=== PATIENT | male | born 1960 | race Caucasian/White ===

== ENCOUNTER 2017-11-09 10:21 | Inpatient (IN) | payer OTHER ==
[~2017-11-09] VITALS: Ht 177.8 cm; Wt 83.4 kg
[2017-11-09 10:59] VITALS: BP 187/95; PULSE 119; RESP 14; TEMP 98.6; O2SAT 96
[2017-11-09 11:12] VITALS: BP 157/85; PULSE 120; RESP 16; O2SAT 97
[2017-11-09] MEDS ORDERED: ONDANSETRON HCL 4 MG/2 ML VIAL IV PUSH ONE (11:15)
[2017-11-09] MEDS ORDERED: SODIUM CHLORIDE 0.9% FLUSH 10 ML FLUSH IVF PRN (11:15)
[2017-11-09] MEDS: RESP: ALBUTEROL 2.5 MG/IPRATROPIUM 0.5 MG NEB (SCH) INH ×5 (11:15→12:49)
[2017-11-09] MEDS ORDERED: NITROGLYCERIN 0.4 MG SL 25 TABS/BTL SL ONE (11:15)
[2017-11-09] MEDS ORDERED: SODIUM CHLORID 0.9% 500 ML INJ 500 ML IV ONE (11:15)
--- NOTE | 2017-11-09 11:16 | PD ---
HPI Chief Complaint: Chest Pain Time Seen by Provider: 11:01 Travel History International Travel<30 days: No Contact w/Intl Traveler<30days: No Traveled to known affect area: No History of Present Illness HPI 56y male with a history of HLD, HTN, hypokalemia, COPD presents to the ED c/o SOB, chest pain, leg cramps associated with nausea that started yesterday. Patient states that he has right midsternal chest tightness and pain that radiated down to the left arm and left shoulder that has been constant and moderate in severity. Says that he has developed a headache today and his symptoms have only worsened which is the reason he is here today. Says he took all of his medications today which include potassium, blood pressure, cholesterol pill. Says his right ankle swelled for 1 day a few days ago but resolved promptly. Denies history of blood clots. Patient says that he takes aspirin daily, did take aspirin today. Says he normally takes inhalers for COPD however, he has been out for approximately 2 days. Says some the symptoms are similar to previous episodes when he has run out of his inhalers however, states that this is more intense and is concerned this is hard. Patient denies any chronic cardiac issues. Patient does not currently have a primary care physician and goes to a free clinic and been [facility] Social History Tobacco Use: No Allergies-Medications (Allergen,Severity, Reaction): Coded Allergies: No Known Allergies (Unverified , 11/09/17) Review of Systems Except as stated in HPI: all other systems reviewed are Neg Physical Exam Narrative GENERAL: WD, WN, anxious SKIN: Focused skin assessment warm/dry. HEAD: Atraumatic. Normocephalic. EYES: Pupils equal and round. No scleral icterus. No injection or drainage. ENT: No nasal bleeding or discharge. Mucous membranes pink and moist. NECK: Trachea midline. No JVD. CARDIOVASCULAR: Regular rate and rhythm. No murmur appreciated. RESPIRATORY: No accessory muscle use. Clear to auscultation. Breath sounds equal bilaterally. GASTROINTESTINAL: Abdomen soft, non-tender, nondistended. Hepatic and splenic margins not palpable. MUSCULOSKELETAL: No obvious deformities. No clubbing. No cyanosis. No edema. NEUROLOGICAL: Awake and alert. No obvious cranial nerve deficits. Motor grossly within normal limits. Normal speech. PSYCHIATRIC: Appropriate mood and affect; insight and judgment normal. Data Data Last Documented VS Vital Signs Date Time Temp Pulse Resp B/P (MAP) Pulse Ox O2 Delivery O2 Flow Rate FiO2 11/09/17 11:28 97 Nasal Cannula 2.50 11/09/17 11:12 120 16 157/85 (109) 11/09/17 10:59 98.6 Orders Orders B-Type Natriuretic Peptide (11/09/17 11:08) Ckmb (Isoenzyme) Profile (11/09/17 11:08) Complete Blood Count With Diff (11/09/17 11:08) Comprehensive Metabolic Panel (11/09/17 11:08) Magnesium (Mg) (11/09/17 11:08) Prothrombin Time / Inr (Pt) (11/09/17 11:08) Act Partial Throm Time (Ptt) (11/09/17 11:08) Troponin I (11/09/17 11:08) Chest, Single Ap (11/09/17 11:08) Nitroglycerin Sl (Nitrostat Sl) (11/09/17 11:15) Iv Access Insert/Monitor (11/09/17 11:08) Ecg Monitoring (11/09/17 11:08) Oximetry (11/09/17 11:08) Oxygen Administration (11/09/17 11:08) Sodium Chloride 0.9% Flush (Ns Flush) (11/09/17 11:15) Albuterol-Ipratropium Neb (Duoneb Neb) (11/09/17 11:15) Influenzae A/B Antigen (11/09/17 11:08) Ondansetron Inj (Zofran Inj) (11/09/17 11:15) Sodium Chlorid 0.9% 500 Ml Inj (Ns 500 M (11/09/17 11:15) Promethazine Inj (Phenergan Inj) (11/09/17 12:00) Lactated Ringer's 1000 Ml Inj (Lr 1000 M (11/09/17 12:00) Promethazine Inj (Phenergan Inj) (11/09/17 12:15) CKMB (11/09/17 11:30) CKMB% (11/09/17 11:30) Urinalysis - C+S If Indicated (11/09/17 12:43) Acetaminophen (Tylenol) (11/09/17 14:15) Nitroglycerin 2% Oint (Nitroglycerin 2% (11/09/17 14:15) Sodium Chlor 0.9% 1000 Ml Inj (Ns 1000 M (11/09/17 14:15) Electrocardiogram (11/09/17 10:45) Ct Pulmonary Angiogram (11/09/17 ) Electrocardiogram (11/09/17 ) Iohexol 350 Inj (Omnipaque 350 Inj) (11/09/17 16:00) Ct Brain W/O Iv Contrast(Rout) (11/09/17 ) Magnesium Sulfate 1 Gm Premix (Magnesium (11/09/17 17:00) Admit Order (Ed Use Only) (11/09/17 17:00) Labs Laboratory Tests Test 11/09/17 11:30 11/09/17 12:45 White Blood Count 7.7 TH/MM3 Red Blood Count 4.28 MIL/MM3 Hemoglobin 13.7 GM/DL Hematocrit 39.7 % Mean Corpuscular Volume 92.8 FL Mean Corpuscular Hemoglobin 32.0 PG Mean Corpuscular Hemoglobin Concent 34.5 % Red Cell Distribution Width 13.6 % Platelet Count 161 TH/MM3 Mean Platelet Volume 7.7 FL Neutrophils (%) (Auto) 56.7 % Lymphocytes (%) (Auto) 35.3 % Monocytes (%) (Auto) 6.6 % Eosinophils (%) (Auto) 0.5 % Basophils (%) (Auto) 0.9 % Neutrophils # (Auto) 4.3 TH/MM3 Lymphocytes # (Auto) 2.7 TH/MM3 Monocytes # (Auto) 0.5 TH/MM3 Eosinophils # (Auto) 0.0 TH/MM3 Basophils # (Auto) 0.1 TH/MM3 CBC Comment DIFF FINAL Differential Comment Prothrombin Time 10.1 SEC Prothromb Time International Ratio 1.0 RATIO Activated Partial Thromboplast Time 25.4 SEC Blood Urea Nitrogen 8 MG/DL Creatinine 0.73 MG/DL Random Glucose 89 MG/DL Total Protein 7.2 GM/DL Albumin 3.9 GM/DL Calcium Level 7.8 MG/DL Magnesium Level 1.4 MG/DL Alkaline Phosphatase 88 U/L Aspartate Amino Transf (AST/SGOT) 56 U/L Alanine Aminotransferase (ALT/SGPT) 47 U/L Total Bilirubin 0.4 MG/DL Sodium Level 136 MEQ/L Potassium Level 3.7 MEQ/L Chloride Level 101 MEQ/L Carbon Dioxide Level 21.7 MEQ/L Anion Gap 13 MEQ/L Estimat Glomerular Filtration Rate 111 ML/MIN Total Creatine Kinase 1442 U/L Creatine Kinase MB 13.8 NG/ML Creatine Kinase MB % 1.0 % Troponin I LESS THAN 0.02 NG/ML B-Type Natriuretic Peptide 13 PG/ML Urine Color YELLOW Urine Turbidity CLEAR Urine pH 5.5 Urine Specific [place] 1.011 Urine Protein NEG mg/dL Urine Glucose (UA) 150 mg/dL Urine Ketones 10 mg/dL Urine Occult Blood NEG Urine Nitrite NEG Urine Bilirubin NEG Urine Urobilinogen LESS THAN 2.0 MG/DL Urine Leukocyte Esterase NEG Urine Squamous Epithelial Cells <1 /hpf Urine Mucus FEW /lpf Microscopic Urinalysis Comment CULT NOT INDICATED MDM Medical Decision Making Medical Screen Exam Complete: Yes Emergency Medical Condition: Yes Differential Diagnosis NSTEMI, angina, unstable angina, COPD exacerbation, influenza, upper respiratory infection Narrative Course 56-year-old male with a history of COPD, hypertension, hyperlipidemia presents to the emergency department with concerns of chest tightness, leg cramps, left arm numbness that started yesterday. States today he developed a headache and his cramps have not resolved so he decided to come to the emergency department today. Says he has associated shortness of breath and nausea. Says his right ankle started swelling proximal 1 day last week resolved spontaneously. The exam findings demonstrate a 56-year-old male anxious, restless in bed. 2 L O2 administered for potential ACS. Patient says he took aspirin today. Denies any cardiac history. Says he drinks maybe 1 drink per day but denies daily alcohol consumption. Vital signs stable, mildly hypertensive. EKG shows sinus tachycardia without STEMI changes. Nitro 0.4 mg administered SL with significant improvement in symptoms. Zofran and Phenergan administered for nausea. Normal saline 500 cc initiated. Because of patient's apparent muscle spasms, initiated lactated Ringer's IV fluid. Duonebs x2 administered with good relief of SOB. Upon reevaluation and discussion of findings, patient continues to have chest pain /. Ordered 0.5" nitro paste. HR 128, BP systolic 158. In addition, he has a persistent headache and does not feel nausea. PO Tylenol administered. Patient apparently refused the Nitropaste as the initial nitro dose gave him a headache. Pt will be admitted for rhabdomyolysis, chest pain r/o ACS. Patient will be admitted to Dr. De La Rosa Diagnosis Primary Impression: Rhabdomyolysis Qualified Codes: M62.82 - Rhabdomyolysis Additional Impression: Noncompliance Admitting Information Admitting Physician Requests: Admit Condition: Stable Nataliya Ervin Nov 09, 2017 11:16
[2017-11-09 11:28] VITALS: O2SAT 97
--- NOTE | 2017-11-09 11:40 | PD ---
Physical Exam Date Seen by Provider: Nov 09, 2017 Narrative This patient presents with chest pain. He states that his problems all started yesterday with some cramps. Today, he developed the chest pain. He has a history of tobacco abuse, hypertension and hyperlipidemia. Data Data Last Documented VS Vital Signs Date Time Temp Pulse Resp B/P (MAP) Pulse Ox O2 Delivery O2 Flow Rate FiO2 11/09/17 11:28 97 Nasal Cannula 2.50 11/09/17 11:12 120 16 157/85 (109) 11/09/17 10:59 98.6 Orders Orders B-Type Natriuretic Peptide (11/09/17 11:08) Ckmb (Isoenzyme) Profile (11/09/17 11:08) Complete Blood Count With Diff (11/09/17 11:08) Comprehensive Metabolic Panel (11/09/17 11:08) Magnesium (Mg) (11/09/17 11:08) Prothrombin Time / Inr (Pt) (11/09/17 11:08) Act Partial Throm Time (Ptt) (11/09/17 11:08) Troponin I (11/09/17 11:08) Chest, Single Ap (11/09/17 11:08) Nitroglycerin Sl (Nitrostat Sl) (11/09/17 11:15) Iv Access Insert/Monitor (11/09/17 11:08) Ecg Monitoring (11/09/17 11:08) Oximetry (11/09/17 11:08) Oxygen Administration (11/09/17 11:08) Sodium Chloride 0.9% Flush (Ns Flush) (11/09/17 11:15) Albuterol-Ipratropium Neb (Duoneb Neb) (11/09/17 11:15) Influenzae A/B Antigen (11/09/17 11:08) Ondansetron Inj (Zofran Inj) (11/09/17 11:15) Sodium Chlorid 0.9% 500 Ml Inj (Ns 500 M (11/09/17 11:15) MDM Supervised Visit with MEAGAN: Yes Interpretation(s) EKG shows sinus tachycardia at 122. No ST segment elevation or depression. Differential Diagnosis Differential diagnosis of chest pain includes but is not limited to musculoskeletal pain, pulmonary embolism, acute coronary syndrome, pneumonia, pleurisy Narrative Course I, Dr. Zimmerman, have reviewed the advance practice practitioner's documentation and am in agreement, met with the patient face to face, made the diagnosis, and the medical decision making was done by me. *My assessment and Findings: Patient is awake and alert and does not appear to be in any acute distress. However, his symptomatology is worrisome. Please see Nataliya Ervin PA-C's note for further details, lab and radiology results, final diagnosis and disposition. Condition: Stable Mary Zimmerman MD Nov 09, 2017 11:40
--- NOTE | 2017-11-09 11:47 | RADRPT ---
EXAM DATE/TIME: 11/09/2017 11:25 [facility] COMPARISON: No previous studies available for comparison. INDICATIONS : Chest pains x 2 days with nausea and vomiting, diarrhea MEDICAL HISTORY : None. SURGICAL HISTORY : None. ENCOUNTER: Initial ACUITY: 2 days PAIN SCORE: 9/10 LOCATION: Bilateral chest FINDINGS: A single view of the chest demonstrates the lungs to be symmetrically aerated without evidence of mas s, infiltrate or effusion. The cardiomediastinal contours are unremarkable. Osseous structures are intact. CONCLUSION: No acute disease. There is no evidence of pneumonia. Vikram Ventura MD on November 09, 2017 at 11:44 Board Certified Radiologist. This report was verified electronically.
[2017-11-09 11:55] LABS: AUTOMATED NEUTROPHIL # 4.3 TH/MM3 (1.8-7.7); BASOPHIL # 0.1 TH/MM3 (0-0.2); BASOPHIL % 0.9 % (0.0-2.0); EOSINOPHIL % 0.5 % (0.0-4.0); HEMATOCRIT 39.7 % (39.0-51.0); HEMOGLOBIN 13.7 GM/DL (13.0-17.0); LYMPH % 35.3 % (9.0-44.0); LYMPHOCYTE # 2.7 TH/MM3 (1.0-4.8); MEAN CELL VOLUME 92.8 FL (80.0-100.0); MEAN CORPUSCULAR HGB CONC 34.5 % (32.0-36.0); MEAN PLATELET VOLUME 7.7 FL (7.0-11.0); MONO % 6.6 % (0.0-8.0); MONOCYTE # 0.5 TH/MM3 (0-0.9); NEUT % 56.7 % (16.0-70.0); PLATELET COUNT 161 TH/MM3 (150-450); RED BLOOD COUNT 4.28 MIL/MM3 (4.50-5.90); RED CELL DISTRIBUTION WIDTH 13.6 % (11.6-17.2); WHITE BLOOD COUNT 7.7 TH/MM3 (4.0-11.0)
[2017-11-09] MEDS ORDERED: LACTATED RINGER'S 1000 ML INJ 1,000 ML IV ONE (12:00)
[2017-11-09] MEDS ORDERED: PROMETHAZINE INJ 25 MG/ML VIAL IM ONE (12:00)
[2017-11-09 12:10] LABS: PROTHROMBIN TIME - PATIENT 10.1 SEC (9.8-11.6)
[2017-11-09] MEDS ORDERED: PROMETHAZINE INJ 25 MG/ML VIAL OTHER ONE (12:15)
[2017-11-09 12:16] LABS: ALBUMIN 3.9 GM/DL (3.4-5.0); AST (GOT) 56 U/L (15-37); BICARBONATE 21.7 MEQ/L (21.0-32.0); BLOOD UREA NITROGEN 8 MG/DL (7-18); CALCIUM 7.8 MG/DL (8.5-10.1); CHLORIDE 101 MEQ/L (98-107); CREATININE 0.73 MG/DL (0.60-1.30); GLOMERULAR FILTRATION RATE 111 ML/MIN (>89); GLUCOSE,RANDOM 89 MG/DL (74-106); MAGNESIUM 1.4 MG/DL (1.5-2.5); SODIUM (NA) 136 MEQ/L (136-145)
[2017-11-09 12:30] LABS: ALKALINE PHOSPHATASE 88 U/L (45-117); ALT (GPT) 47 U/L (12-78); TOTAL BILIRUBIN ADULT 0.4 MG/DL (0.2-1.0); TOTAL PROTEIN 7.2 GM/DL (6.4-8.2); TROPONIN I LESS THAN 0.02 NG/ML (0.02-0.05)
[2017-11-09 13:21] LABS: BILIRUBIN, URINE NEG (NEG); BLOOD, URINE NEG (NEG); GLUCOSE,URINE 150 mg/dL (NEG); KETONE, URINE 10 mg/dL (NEG); MUCUS URINE FEW /lpf (OCC); NITRITE,URINE NEG (NEG); PH, URINE 5.5 (5.0-8.5); SQUAMOUS EPITHELIAL CELL URINE <1 /hpf (0-5); URINE COLOR YELLOW (YELLW/STRAW); URINE LEUKOCYTE ESTERASE NEG (NEG)
[2017-11-09] MEDS ORDERED: NITROGLYCERIN 2% OINT 1 GM PACKET TOPICAL ONE (14:15)
[2017-11-09] MEDS ORDERED: ACETAMINOPHEN 500 MG CPLT PO ONE (14:15)
[2017-11-09] MEDS ORDERED: SODIUM CHLOR 0.9% 1000 ML INJ 1,000 ML IV ONE (14:15)
[2017-11-09] MEDS ORDERED: IOHEXOL 350 MG/ML 10 ML VIAL (for RAD DIAG) IVCONTRAST ONE (16:00)
--- NOTE | 2017-11-09 16:14 | RADRPT ---
EXAM DATE/TIME: 11/09/2017 15:56 [facility] COMPARISON: No previous studies available for comparison. INDICATIONS : Chest pain. Short of breath. Tachycardia. IV CONTRAST: 70 cc Omnipaque 350 (iohexol) IV RADIATION DOSE: 15.45 CTDIvol (mGy) MEDICAL HISTORY : None SURGICAL HISTORY : None. ENCOUNTER: Initial ACUITY: 1 day PAIN SCALE: 7/10 LOCATION: Bilateral chest TECHNIQUE: Volumetric scanning of the chest was performed using a pulmonary embolism protocol MIP images were re constructed. Using automated exposure control and adjustment of the mA and/or kV according to patien t size, radiation dose was kept as low as reasonably achievable to obtain optimal diagnostic quality images. DICOM format image data is available electronically for review and comparison. Follow-up recommendations for detected pulmonary nodules are based at a minimum on nodule size and pa tient risk factors according to Fleischner Society Guidelines. FINDINGS: PULMONARY ARTERIES: No filling defects are seen in the pulmonary arteries through the segmental level. LUNGS: There is a tiny nodular focus of parenchymal density in the anterolateral left upper lobe which appea rs benign, potentially scarring or small infiltrate. PLEURAE: There is no pleural thickening or pleural effusion. MEDIASTINUM: There is good visualization of the great vessels of the middle mediastinum. No evidence of mediastin al or hilar adenopathy/mass. MUSCULOSKELETAL: Within normal limits for patient age. MISCELLANEOUS: Diminished density within the liver which is likely steatosis. CONCLUSION: No evidence of pulmonary embolism Timbo Cazares MD on November 09, 2017 at 16:07 Board Certified Radiologist. This report was verified electronically.
[2017-11-09] MEDS ORDERED: SODIUM CHLORIDE 0.9% FLUSH 10 ML FLUSH IV FLUSH PRN (17:30)
[2017-11-09] MEDS ORDERED: NALOXONE HCL 0.4 MG/ML AMP IV PUSH PRN (17:30)
[2017-11-09] MEDS: SODIUM CHLORIDE 0.9% FLUSH 10 ML FLUSH IV FLUSH SCH (17:58)
[2017-11-09] MEDS: MAGNESIUM SULFATE 1 GM PREMIX 100 ML IV SCH ×2 (17:58→23:44)
[2017-11-09 18:02] VITALS: BP 175/107; PULSE 115; RESP 16; O2SAT 98
--- NOTE | 2017-11-09 18:41 | RADRPT ---
EXAM DATE/TIME: 11/09/2017 18:18 [facility] COMPARISON: No previous studies available for comparison. INDICATIONS : Headaches with left arm numbness. RADIATION DOSE: 49.57 CTDIvol (mGy) MEDICAL HISTORY : None SURGICAL HISTORY : None. ENCOUNTER: Initial ACUITY: 1 day PAIN SCALE: 7/10 LOCATION: cranial TECHNIQUE: Multiple contiguous axial images were obtained of the head. Using automated exposure control and adj ustment of the mA and/or kV according to patient size, radiation dose was kept as low as reasonably a chievable to obtain optimal diagnostic quality images. DICOM format image data is available electro nically for review and comparison. FINDINGS: CEREBRUM: The ventricles are normal for age. No evidence of midline shift, mass lesion, hemorrhage or acute in farction. No extra-axial fluid collections are seen. POSTERIOR FOSSA: The cerebellum and brainstem are intact. The 4th ventricle is midline. The cerebellopontine angle i s unremarkable. EXTRACRANIAL: The visualized portion of the orbits is intact. SKULL: The calvaria is intact. No evidence of skull fracture. CONCLUSION: Normal examination for a patient of this age. Chilo Antoine MD on November 09, 2017 at 18:38 Board Certified Radiologist. This report was verified electronically.
--- NOTE | 2017-11-09 19:11 | HHI.HP ---
HPI Service [facility] Primary Care Physician No Primary Care Physician Admission Diagnosis rhabdomyolysis, r/o ACS Diagnoses: Travel History International Travel<30 Days: No Contact w/Intl Traveler <30 Da: No Traveled to Known Affected Are: No History of Present Illness hx from patient, ER communication and review of records yesterday did not feel right felt off balance today, went to work, and did not feel well called ambulance nausea and vomited was having chest pains and tightness left arm numb and tingling nothing better or worse took his bp medsn and lipitor but nothing happened swating nasueaous cold clammy feelign bad all night episodes come and go this am as well, 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 ankle swelling a week ago last stress test 6-7 yrs ago has hx of copd no cough, no fever but felt warm felt sinus symptoms Review of Systems Except as stated in HPI: all other systems reviewed are Neg Past Family Social History Past Medical History copd htn TIA heat strokes Past Surgical History left elbow sx x 8 2 back sx Allergies: Coded Allergies: No Known Allergies (Unverified , 11/09/17) Family History adopted, no idea of family hx Social History quit smoking 7 yrs ago drink etoh 4- 6 beers a day- last night was last drink no drugs Physical Exam Vital Signs Vital Signs Date Time Temp Pulse Resp B/P (MAP) Pulse Ox O2 Delivery O2 Flow Rate FiO2 11/09/17 18:02 115 16 175/107 (129) 98 Nasal Cannula 2.00 11/09/17 11:28 97 Nasal Cannula 2.50 11/09/17 11:12 120 16 157/85 (109) 97 Nasal Cannula 2.00 11/09/17 11:12 97 Nasal Cannula 2.00 11/09/17 11:00 16 97 Nasal Cannula 2.00 11/09/17 10:59 98.6 119 14 187/95 (125) 96 Physical Exam GENERAL: This is a well-nourished, well-developed patient, in no apparent distress. SKIN: No rashes, ecchymoses or lesions. Cool and dry. Flushed skin HEAD: Atraumatic. Normocephalic. No temporal or scalp tenderness. EYES: No scleral icterus. No injection or drainage. ENT: Nose without bleeding, purulent drainage or septal hematoma.. Airway patent. NECK: Trachea midline. No JVD CARDIOVASCULAR: tachycardic, regular rhythm without murmurs, gallops, or rubs. RESPIRATORY: Clear to auscultation. Breath sounds equal bilaterally. No wheezes , rales, or rhonchi. GASTROINTESTINAL: Abdomen soft, non-tender, nondistended. . No guarding. MUSCULOSKELETAL: Extremities without clubbing, cyanosis, or edema. . No calf tenderness. NEUROLOGICAL: Awake and alert.Motor and sensory grossly within normal limits. Normal speech. Laboratory Laboratory Tests Test 11/09/17 11:30 11/09/17 12:45 11/09/17 17:45 White Blood Count 7.7 Red Blood Count 4.28 Hemoglobin 13.7 Hematocrit 39.7 Mean Corpuscular Volume 92.8 Mean Corpuscular Hemoglobin 32.0 Mean Corpuscular Hemoglobin Concent 34.5 Red Cell Distribution Width 13.6 Platelet Count 161 Mean Platelet Volume 7.7 Neutrophils (%) (Auto) 56.7 Lymphocytes (%) (Auto) 35.3 Monocytes (%) (Auto) 6.6 Eosinophils (%) (Auto) 0.5 Basophils (%) (Auto) 0.9 Neutrophils # (Auto) 4.3 Lymphocytes # (Auto) 2.7 Monocytes # (Auto) 0.5 Eosinophils # (Auto) 0.0 Basophils # (Auto) 0.1 CBC Comment DIFF FINAL Differential Comment Prothrombin Time 10.1 Prothromb Time International Ratio 1.0 Activated Partial Thromboplast Time 25.4 Blood Urea Nitrogen 8 Creatinine 0.73 Random Glucose 89 Total Protein 7.2 Albumin 3.9 Calcium Level 7.8 Magnesium Level 1.4 Alkaline Phosphatase 88 Aspartate Amino Transf (AST/SGOT) 56 Alanine Aminotransferase (ALT/SGPT) 47 Total Bilirubin 0.4 Sodium Level 136 Potassium Level 3.7 Chloride Level 101 Carbon Dioxide Level 21.7 Anion Gap 13 Estimat Glomerular Filtration Rate 111 Total Creatine Kinase 1442 Creatine Kinase MB 13.8 Creatine Kinase MB % 1.0 Troponin I LESS THAN 0.02 B-Type Natriuretic Peptide 13 Urine Color YELLOW Urine Turbidity CLEAR Urine pH 5.5 Urine Specific [place] 1.011 Urine Protein NEG Urine Glucose (UA) 150 Urine Ketones 10 Urine Occult Blood NEG Urine Nitrite NEG Urine Bilirubin NEG Urine Urobilinogen LESS THAN 2.0 Urine Leukocyte Esterase NEG Urine Squamous Epithelial Cells <1 Urine Mucus FEW Microscopic Urinalysis Comment CULT NOT INDICATED Result Diagram: 11/09/17 1130 11/09/17 1130 Caprini VTE Risk Assessment Caprini VTE Risk Assessment: Mod/High Risk (score >= 2) Caprini Risk Assessment Model Point Value = 1 Point Value = 2 Point Value = 3 Point Value = 5 Age 41-60 Minor surgery BMI > 25 kg/m2 Swollen legs Varicose veins or History of unexplained or recurrent spontaneous Oral contraceptives or hormone replacement Sepsis (< 1 month) Serious lung disease, including pneumonia (< 1 month) Abnormal pulmonary function Acute myocardial infarction Congestive heart failure (< 1 month) History of inflammatory bowel disease Medical patient at bed rest Age 61-74 Arthroscopic surgery Major open surgery (> 45 min) Laparoscopic surgery (> 45 min) Malignancy Confined to bed (> 72 hours) Immobilizing plaster cast Central venous access Age >= 75 History of VTE Family history of VTE Factor V Leiden Prothrombin [id number] Lupus anticoagulant Anticardiolipin antibodies Elevated serum homocysteine Heparin-induced thrombocytopenia Other congenital or acquired thrombophilia Stroke (< 1 month) Elective arthroplasty Hip, pelvis, or leg fracture Acute spinal cord injury (< 1 month) Prophylaxis Regimen Total Risk Factor Score Risk Level Prophylaxis Regimen 0-1 Low Early ambulation 2 Moderate Order ONE of the following: *Sequential Compression Device (SCD) *Heparin 5000 units SQ BID 3-4 Higher Order ONE of the following medications: *Heparin 5000 units SQ TID *Enoxaparin/Lovenox 40 mg SQ daily (WT < 150 kg, CrCl > 30 mL/min) *Enoxaparin/Lovenox 30 mg SQ daily (WT < 150 kg, CrCl > 10-29 mL/min) *Enoxaparin/Lovenox 30 mg SQ BID (WT < 150 kg, CrCl > 30 mL/min) AND/OR *Sequential Compression Device (SCD) 5 or more Highest Order ONE of the following medications: *Heparin 5000 units SQ TID (Preferred with Epidurals) *Enoxaparin/Lovenox 40 mg SQ daily (WT < 150 kg, CrCl > 30 mL/min) *Enoxaparin/Lovenox 30 mg SQ daily (WT < 150 kg, CrCl > 10-29 mL/min) *Enoxaparin/Lovenox 30 mg SQ BID (WT < 150 kg, CrCl > 30 mL/min) AND *Sequential Compression Device (SCD) Assessment and Plan Assessment and Plan Impression: possible unstable angina high risk factor etoh withdrawal rhabdo- on crestor past 6 months, prior to this was lipitor - but is also alwys sitting on car copd htn Plan: asa cardio consult iv hydration nebs prn coreg thiamine ciwa librium 20mg po tid will follow ck and renal function ct brain changed to full admit Discussed Condition With patient, ER PA, nursing staff Joyce De La Rosa MD Nov 09, 2017 19:11
[2017-11-09] MEDS ORDERED: RESP: ALBUTEROL 2.5 MG/IPRATROPIUM 0.5 MG NEB (PRN) NEB (19:15)
[2017-11-09] MEDS ORDERED: CARVEDILOL 12.5 MG TAB PO ONE (19:15)
[2017-11-09 19:23] LABS: TROPONIN I LESS THAN 0.02 NG/ML (0.02-0.05)
[2017-11-09] MEDS ORDERED: LORazepam 2 MG TAB PO PRN (19:30)
[2017-11-09] MEDS ORDERED: FLUMAZENIL 0.5 MG/5 ML VIAL IV PUSH PRN (19:30)
[2017-11-09] MEDS ORDERED: LORazepam 2 MG/ML VIAL IV PUSH PRN ×4 (19:30)
[2017-11-09] MEDS ORDERED: THIAMINE HCL 100 MG TAB PO ONE (19:30)
[2017-11-09 20:20] VITALS: BP 169/99; PULSE 107; RESP 19; TEMP 98.7; O2SAT 96
[2017-11-09 20:29] VITALS: PULSE 111
[2017-11-09] MEDS: SODIUM CHLOR 0.9% 1000 ML INJ 1,000 ML IV SCH (21:23)
[2017-11-10] VITALS (12 sets, daily range): BP systolic 121–174; BP diastolic 68–106; PULSE 86–114; RESP 18–20; TEMP 97.8–98.6; O2SAT 93–96
--- NOTE | 2017-11-10 00:03 | EKG ---
Date Performed: 11/09/2017 Time Performed: 10:45:06 PTAGE: 56 years EKG: SINUS TACHYCARDIA WITH OCCASIONAL VENTRICULAR PREMATURE COMPLEXES INCOMPLETE RIGHT BUNDLE B RANCH BLOCK ABNORMAL RHYTHM ECG PREVIOUS TRACING : 06/11/2001 13.27 DOCTOR: Mauricio Trotter Interpretating Date/Time 11/09/2017 23:59:13
[2017-11-10 00:28] LABS: TROPONIN I 0.02 NG/ML (0.02-0.05)
[2017-11-10] MEDS: SODIUM CHLOR 0.9% 1000 ML INJ 1,000 ML IV SCH ×3 (06:56→21:01)
[2017-11-10 07:44] LABS: BASOPHIL # 0.1 TH/MM3 (0-0.2); BASOPHIL % 1.3 % (0.0-2.0); EOSINOPHIL # 0.1 TH/MM3 (0-0.4); EOSINOPHIL % 2.1 % (0.0-4.0); HEMATOCRIT 40.1 % (39.0-51.0); HEMOGLOBIN 13.7 GM/DL (13.0-17.0); LYMPH % 29.7 % (9.0-44.0); LYMPHOCYTE # 1.6 TH/MM3 (1.0-4.8); MEAN CELL VOLUME 92.7 FL (80.0-100.0); MEAN CORPUSCULAR HEMOGLOBIN 31.6 PG (27.0-34.0); MEAN CORPUSCULAR HGB CONC 34.1 % (32.0-36.0); MEAN PLATELET VOLUME 8.1 FL (7.0-11.0); MONO % 10.8 % (0.0-8.0); MONOCYTE # 0.6 TH/MM3 (0-0.9); NEUT % 56.1 % (16.0-70.0); PLATELET COUNT 154 TH/MM3 (150-450); RED BLOOD COUNT 4.32 MIL/MM3 (4.50-5.90); RED CELL DISTRIBUTION WIDTH 13.7 % (11.6-17.2); WHITE BLOOD COUNT 5.4 TH/MM3 (4.0-11.0)
[2017-11-10] MEDS: SODIUM CHLORIDE 0.9% FLUSH 10 ML FLUSH IV FLUSH SCH ×2 (07:46→21:00)
[2017-11-10 08:35] LABS: ALBUMIN 3.3 GM/DL (3.4-5.0); ALKALINE PHOSPHATASE 76 U/L (45-117); ALT (GPT) 41 U/L (12-78); AST (GOT) 71 U/L (15-37); BICARBONATE 23.8 MEQ/L (21.0-32.0); BLOOD UREA NITROGEN 5 MG/DL (7-18); CALCIUM 7.8 MG/DL (8.5-10.1); CHLORIDE 107 MEQ/L (98-107); CREATININE 0.77 MG/DL (0.60-1.30); GLOMERULAR FILTRATION RATE 104 ML/MIN (>89); GLUCOSE,RANDOM 89 MG/DL (74-106); SODIUM (NA) 141 MEQ/L (136-145); TOTAL PROTEIN 6.4 GM/DL (6.4-8.2)
[2017-11-10] MEDS: THIAMINE HCL 100 MG TAB PO SCH (08:45)
[2017-11-10] MEDS: ASPIRIN EC 325 MG TABEC PO SCH (08:46)
--- NOTE | 2017-11-10 14:22 | EKG ---
Date Performed: 11/09/2017 Time Performed: 22:05:52 PTAGE: 56 years EKG: Sinus tachycardia INCOMPLETE RIGHT BUNDLE BRANCH BLOCK Compared to previous tracing IVCD rand s increased since prior tracing Clinical correlation is recommended ABNORMAL RHYTHM ECG PREVIOUS TRACING : 11/09/2017 14.46 DOCTOR: Duong Livingston Interpretating Date/Time 11/10/2017 14:22:11
--- NOTE | 2017-11-10 15:52 | EKG ---
Date Performed: 11/09/2017 Time Performed: 14:46:48 PTAGE: 56 years EKG: SINUS TACHYCARDIA ABNORMAL RHYTHM ECG Since the PREVIOUS TRACING , no significant change noted PREVIOUS TRACIN11/09/2017 10.45 DOCTOR: Duong Livingston Interpretating Date/Time 11/10/2017 15:49:35
--- NOTE | 2017-11-10 16:50 | HHI.PR ---
Subjective Remarks patient c/o headache, sob on exertion as minimal as walking to the bathroom increased cough Denies fevers or chills no tremors denies hallucinations Objective Vitals Vital Signs Date Time Temp Pulse Resp B/P (MAP) Pulse Ox O2 Delivery O2 Flow Rate FiO2 11/10/17 12:00 98.3 94 20 174/93 (120) 95 11/10/17 11:34 86 11/10/17 11:02 96 21 11/10/17 08:00 98.0 97 20 174/100 (124) 95 174/106 (128) 11/10/17 07:53 95 11/10/17 04:00 140/80 (100) 11/10/17 04:00 109 11/10/17 01:53 Room Air 11/10/17 00:00 109 11/10/17 00:00 98.6 112 20 167/95 (119) 94 11/09/17 21:28 Room Air 11/09/17 20:29 111 11/09/17 20:20 98.7 107 19 169/99 (122) 96 11/09/17 19:50 11/09/17 18:02 115 16 175/107 (129) 98 Nasal Cannula 2.00 I/O 11/09/17 11/09/17 11/09/17 11/10/17 11/10/17 11/10/17 06:59 14:59 22:59 06:59 14:59 22:59 Intake Total 1500 ml 1000 ml 1339 ml 360 ml Output Total 800 ml 1000 ml Balance 1500 ml 1000 ml 539 ml -640 ml Intake Oral 240 ml 360 ml IV Total 1500 ml 1000 ml 1099 ml Output Urine Total 800 ml 1000 ml # Voids 3 # Bowel Movements 0 Result Diagram: 11/10/17 0705 11/10/17 0705 Imaging Last Impressions Chest X-Ray 11/09/17 1108 Signed Impressions: Service Date/Time: Thursday, November 09, 2017 11:25 - CONCLUSION: No acute disease. There is no evidence of pneumonia. Vikram Ventura MD Head CT 11/09/17 0000 Signed Impressions: Service Date/Time: Thursday, November 09, 2017 18:18 - CONCLUSION: Normal examination for a patient of this age. Chilo Antoine MD CT Angiography 11/09/17 0000 Signed Impressions: Service Date/Time: Thursday, November 09, 2017 15:56 - CONCLUSION: No evidence of pulmonary embolism Timbo Cazares MD Objective Remarks AAox3 NAD PERRLA Lungs with severely diminished air entry in bilateral lung espitia, no wheezing or rhonchi, crackles auscultated. S1-S2 regular rate and rhythm, no murmur rubs or gallops. Abdomen is soft, nontender nondistended. Extremities without edema, pedal pulses palpable. There is no JVD. Medications and IVs Current Medications Medications (Trade) Dose Ordered Sig/Gera Route Start Time Stop Time Status Last Admin (NS Flush) 2 ml UNSCH PRN IV FLUSH 11/09/17 17:30 (NS Flush) 2 ml BID IV FLUSH 11/09/17 21:00 11/10/17 07:46 (Narcan Inj) 0.4 mg UNSCH PRN IV PUSH 11/09/17 17:30 (Duoneb Neb) 1 ampule Q4HR NEB PRN NEB 11/09/17 19:15 (Ecotrin Ec) 325 mg DAILY PO 11/10/17 09:00 11/10/17 08:46 Sodium Chloride 1,000 ml @ 100 mls/hr Q10H IV 11/09/17 19:30 11/10/17 08:46 (Romazicon Inj) 0.2 mg Q1M PRN IV PUSH 11/09/17 19:30 (Ativan) 1 mg Q4H PRN PO 11/09/17 19:30 (Ativan Inj) 1 mg Q4H PRN IV PUSH 11/09/17 19:30 (Ativan) 2 mg Q2H PRN PO 11/09/17 19:30 (Ativan Inj) 2 mg Q2H PRN IV PUSH 11/09/17 19:30 (Ativan Inj) 2 mg Q1H PRN IV PUSH 11/09/17 19:30 (Ativan Inj) 2 mg Q15M PRN IV PUSH 11/09/17 19:30 (Vitamin B1) 100 mg DAILY PO 11/10/17 09:00 11/10/17 08:45 (Librium) 20 mg TID PO 11/10/17 09:00 11/10/17 13:13 Urinary Catheter: No Vascular Central Line Catheter: No A/P Problem List: (1) COPD exacerbation ICD Code: J44.1 - Chronic obstructive pulmonary disease with (acute) exacerbation Plan: Severely diminished air entry bilateral lung espitia. Start IV Solu-Medrol Duo nebs as scheduled and as needed We will start on p.o. Levaquin (2) Chest pain ICD Code: R07.9 - Chest pain, unspecified Plan: Suspect secondary to COPD exacerbation. Troponin negative 3 with elevated CK-MB likely related to rhabdomyolysis. Continue to monitor CPK. She is chest pain-free. We will possibly order a stress test once patient more stable. (3) Rhabdomyolysis ICD Code: M62.82 - Rhabdomyolysis Status: Acute Plan: CK trending up. I will increase the rate of IV fluids to 150 mL's per hour. (4) Alcohol withdrawal ICD Code: F10.239 - Alcohol dependence with withdrawal, unspecified Plan: Seems to be pretty well controlled. On CIWA protocol and Librium, continue thiamine, not requiring IV benzodiazepines. Assessment and Plan DVT prophylaxis: Add heparin subcutaneously. GI prophylaxis: Add PPI since patient will be on IV steroids. Problem Qualifiers (1) Rhabdomyolysis: Qualified Codes: M62.82 - Rhabdomyolysis (2) Alcohol withdrawal: Qualified Codes: F10.230 - Alcohol dependence with withdrawal, uncomplicated Johnathan Vaz MD Nov 10, 2017 16:50
[2017-11-10] MEDS ORDERED: methylPREDNISolone SOD SUCC 125 MG/2 ML VIAL IV PUSH ONE (17:00)
[2017-11-10] MEDS: LEVOFLOXACIN 750 MG TAB PO SCH (17:32)
[2017-11-10] MEDS: RESP: ALBUTEROL 2.5 MG/IPRATROPIUM 0.5 MG NEB (SCH) NEB (19:45)
[2017-11-10] MEDS ORDERED: ACETAMINOPHEN 325 MG TAB PO ONE (23:00)
[2017-11-10] MEDS: methylPREDNISolone SOD SUCC 40 MG/1 ML VIAL IV PUSH SCH (23:08)
[2017-11-11] VITALS (8 sets, daily range): BP systolic 136–182; BP diastolic 64–96; PULSE 92–108; RESP 17–20; TEMP 97.1–98.1; O2SAT 93–97
[2017-11-11] MEDS: SODIUM CHLOR 0.9% 1000 ML INJ 1,000 ML IV SCH ×4 (03:59→22:24)
[2017-11-11] MEDS: methylPREDNISolone SOD SUCC 40 MG/1 ML VIAL IV PUSH SCH ×4 (05:16→23:57)
[2017-11-11] MEDS: RESP: ALBUTEROL 2.5 MG/IPRATROPIUM 0.5 MG NEB (SCH) NEB ×4 (08:06→20:39)
[2017-11-11] MEDS: SODIUM CHLORIDE 0.9% FLUSH 10 ML FLUSH IV FLUSH SCH ×2 (09:00→21:00)
[2017-11-11] MEDS: THIAMINE HCL 100 MG TAB PO SCH (09:07)
[2017-11-11] MEDS: ASPIRIN EC 325 MG TABEC PO SCH (09:07)
[2017-11-11 09:56] LABS: AUTOMATED NEUTROPHIL # 7.2 TH/MM3 (1.8-7.7); BASOPHIL % 0.1 % (0.0-2.0); HEMATOCRIT 43.9 % (39.0-51.0); HEMOGLOBIN 14.8 GM/DL (13.0-17.0); LYMPH % 13.9 % (9.0-44.0); LYMPHOCYTE # 1.2 TH/MM3 (1.0-4.8); MEAN CELL VOLUME 94.6 FL (80.0-100.0); MEAN CORPUSCULAR HGB CONC 33.8 % (32.0-36.0); MEAN PLATELET VOLUME 8.5 FL (7.0-11.0); MONOCYTE # 0.1 TH/MM3 (0-0.9); PLATELET COUNT 156 TH/MM3 (150-450); RED BLOOD COUNT 4.64 MIL/MM3 (4.50-5.90); RED CELL DISTRIBUTION WIDTH 13.3 % (11.6-17.2); WHITE BLOOD COUNT 8.5 TH/MM3 (4.0-11.0)
[2017-11-11 10:45] LABS: ALBUMIN 3.7 GM/DL (3.4-5.0); ALKALINE PHOSPHATASE 87 U/L (45-117); ALT (GPT) 50 U/L (12-78); AST (GOT) 59 U/L (15-37); BICARBONATE 21.8 MEQ/L (21.0-32.0); BLOOD UREA NITROGEN 7 MG/DL (7-18); CALCIUM 8.5 MG/DL (8.5-10.1); CHLORIDE 105 MEQ/L (98-107); CREATININE 0.68 MG/DL (0.60-1.30); GLOMERULAR FILTRATION RATE 120 ML/MIN (>89); GLUCOSE,RANDOM 173 MG/DL (74-106); MAGNESIUM 1.8 MG/DL (1.5-2.5); PHOSPHORUS 1.6 MG/DL (2.5-4.9); SODIUM (NA) 138 MEQ/L (136-145); TOTAL BILIRUBIN ADULT 0.5 MG/DL (0.2-1.0); TOTAL PROTEIN 7.6 GM/DL (6.4-8.2)
--- NOTE | 2017-11-11 14:08 | HHI.PR ---
Subjective Remarks BP noted to be elevated. CK trending down Patient complains of throbbing headache Patient denies hallucinations As per RN the patient scoring 8 on CIWA protocol Denies chest pain or shortness of breath. Objective Vitals Vital Signs Date Time Temp Pulse Resp B/P (MAP) Pulse Ox O2 Delivery O2 Flow Rate FiO2 11/11/17 13:02 Room Air 11/11/17 12:00 94 11/11/17 10:04 Room Air 11/11/17 08:09 97 11/11/17 08:00 98.1 99 20 182/89 (120) 95 11/11/17 08:00 108 11/11/17 08:00 97.7 101 20 149/85 (106) 95 11/11/17 04:00 94 11/11/17 03:57 98.1 97 20 154/94 (114) 95 11/11/17 00:00 92 11/11/17 00:00 98.0 97 17 167/87 (113) 93 11/10/17 20:10 Room Air 11/10/17 20:00 98.4 102 18 148/68 (94) 94 11/10/17 20:00 92 11/10/17 19:47 93 11/10/17 19:35 97.8 114 20 121/69 (86) 93 11/10/17 16:00 98.3 88 20 171/99 (123) 95 11/10/17 15:44 96 I/O 11/10/17 11/10/17 11/10/17 11/11/17 11/11/17 11/11/17 07:00 15:00 23:00 07:00 15:00 23:00 Intake Total 1339 ml 360 ml 1239 ml Output Total 800 ml 1000 ml 1150 ml 800 ml Balance 539 ml -640 ml -1150 ml 439 ml Intake Oral 240 ml 360 ml 240 ml IV Total 1099 ml 999 ml Output Urine Total 800 ml 1000 ml 1150 ml 800 ml # Voids 3 4 # Bowel Movements 0 0 Result Diagram: 11/11/17 0845 11/11/17 0845 Imaging Last Impressions Chest X-Ray 11/09/17 1108 Signed Impressions: Service Date/Time: Thursday, November 09, 2017 11:25 - CONCLUSION: No acute disease. There is no evidence of pneumonia. Vikram Ventura MD Head CT 11/09/17 0000 Signed Impressions: Service Date/Time: Thursday, November 09, 2017 18:18 - CONCLUSION: Normal examination for a patient of this age. Chilo Antoine MD CT Angiography 11/09/17 0000 Signed Impressions: Service Date/Time: Thursday, November 09, 2017 15:56 - CONCLUSION: No evidence of pulmonary embolism Timbo Cazares MD Objective Remarks AAox3 NAD PERRLA Lungs with severely diminished air entry in bilateral lung espitia, no wheezing or rhonchi, crackles auscultated. S1-S2 regular rate and rhythm, no murmur rubs or gallops. Abdomen is soft, nontender nondistended. Extremities without edema, pedal pulses palpable. There is no JVD. Procedures None Medications and IVs Current Medications Medications (Trade) Dose Ordered Sig/Gera Route Start Time Stop Time Status Last Admin (NS Flush) 2 ml UNSCH PRN IV FLUSH 11/09/17 17:30 11/10/17 23:08 (NS Flush) 2 ml BID IV FLUSH 11/09/17 21:00 11/10/17 07:46 (Narcan Inj) 0.4 mg UNSCH PRN IV PUSH 11/09/17 17:30 (Duoneb Neb) 1 ampule Q4HR NEB PRN NEB 11/09/17 19:15 (Ecotrin Ec) 325 mg DAILY PO 11/10/17 09:00 11/11/17 09:07 Sodium Chloride 1,000 ml @ 150 mls/hr Q6H40M IV 11/09/17 19:30 11/11/17 12:27 (Romazicon Inj) 0.2 mg Q1M PRN IV PUSH 11/09/17 19:30 (Ativan) 1 mg Q4H PRN PO 11/09/17 19:30 (Ativan Inj) 1 mg Q4H PRN IV PUSH 11/09/17 19:30 11/11/17 09:06 (Ativan) 2 mg Q2H PRN PO 11/09/17 19:30 (Ativan Inj) 2 mg Q2H PRN IV PUSH 11/09/17 19:30 (Ativan Inj) 2 mg Q1H PRN IV PUSH 11/09/17 19:30 (Ativan Inj) 2 mg Q15M PRN IV PUSH 11/09/17 19:30 (Vitamin B1) 100 mg DAILY PO 11/10/17 09:00 11/11/17 09:07 (Librium) 20 mg TID PO 11/10/17 09:00 11/11/17 12:34 (SoluMEDROL INJ) 40 mg Q6HR IV PUSH 11/11/17 00:00 11/11/17 12:34 (Levaquin) 750 mg DAILY@1800 PO 11/10/17 18:00 11/10/17 17:32 (Duoneb Neb) 1 ampule Q4HR WHILE AWAKE NEB NEB 11/10/17 20:00 11/11/17 08:06 (Norvasc) 10 mg DAILY@1700 PO 11/11/17 17:00 A/P Problem List: (1) COPD exacerbation ICD Code: J44.1 - Chronic obstructive pulmonary disease with (acute) exacerbation Plan: Severely diminished air entry bilateral lung espitia. IV Solu-Medrol Duo nebs as scheduled and as needed On p.o. Levaquin 11/11 taper IV Zometa dose to 40 mg IV every 8 hours. Air entry improving. (2) Chest pain ICD Code: R07.9 - Chest pain, unspecified Plan: Suspect secondary to COPD exacerbation. Troponin negative 3 with elevated CK-MB likely related to rhabdomyolysis. Continue to monitor CPK. Chest pain-free Patient will likely need a nuclear stress testing once more stable. (3) Rhabdomyolysis ICD Code: M62.82 - Rhabdomyolysis Status: Acute Plan: Continue IV fluids CPK trending down from [id number]. Continue to monitor CPK. (4) Alcohol withdrawal ICD Code: F10.239 - Alcohol dependence with withdrawal, unspecified Assessment and Plan DVT prophylaxis: Add heparin subcutaneously. GI prophylaxis: Add PPI since patient will be on IV steroids. Discharge Planning Patient with COPD exacerbation and rhabdomyolysis. Pending clinical improvement and improvement of CPK. Problem Qualifiers (1) Rhabdomyolysis: Qualified Codes: M62.82 - Rhabdomyolysis (2) Alcohol withdrawal: Qualified Codes: F10.230 - Alcohol dependence with withdrawal, uncomplicated Johnathan Vaz MD Nov 11, 2017 14:08
[2017-11-11] MEDS: LEVOFLOXACIN 750 MG TAB PO SCH (17:29)
[2017-11-11] MEDS: LORazepam 1 MG TAB PO PRN (21:13)
[2017-11-12] VITALS (7 sets, daily range): BP systolic 112–142; BP diastolic 63–73; PULSE 82–104; RESP 18–20; TEMP 97.9–98.3; O2SAT 93–97
[2017-11-12] MEDS: LORazepam 1 MG TAB PO PRN (01:06)
--- NOTE | 2017-11-12 02:59 | HHI.PR ---
Subjective Remarks NOT SEEN Objective Vitals Vital Signs Date Time Temp Pulse Resp B/P (MAP) Pulse Ox O2 Delivery O2 Flow Rate FiO2 11/12/17 00:41 97 11/12/17 00:14 Room Air 11/12/17 00:07 97.9 104 20 120/69 (86) 93 11/11/17 20:24 Room Air 11/11/17 20:22 101 11/11/17 20:22 97.1 106 18 136/64 (88) 96 11/11/17 18:08 Room Air 11/11/17 16:11 97.4 99 18 149/96 (113) 94 11/11/17 13:02 Room Air 11/11/17 12:00 94 11/11/17 10:04 Room Air 11/11/17 08:09 97 11/11/17 08:00 98.1 99 20 182/89 (120) 95 11/11/17 08:00 108 11/11/17 08:00 97.7 101 20 149/85 (106) 95 11/11/17 04:00 94 11/11/17 03:57 98.1 97 20 154/94 (114) 95 I/O 11/11/17 11/11/17 11/11/17 11/12/17 11/12/17 11/12/17 07:00 15:00 23:00 07:00 15:00 23:00 Intake Total 1239 ml 1600 ml Output Total 800 ml Balance 439 ml 1600 ml Intake Oral 240 ml 600 ml IV Total 999 ml 1000 ml Output Urine Total 800 ml # Voids 4 3 # Bowel Movements 0 1 Result Diagram: 11/11/17 0845 11/11/17 0845 Imaging Last Impressions Chest X-Ray 11/09/17 1108 Signed Impressions: Service Date/Time: Thursday, November 09, 2017 11:25 - CONCLUSION: No acute disease. There is no evidence of pneumonia. Vikram Ventura MD Head CT 11/09/17 0000 Signed Impressions: Service Date/Time: Thursday, November 09, 2017 18:18 - CONCLUSION: Normal examination for a patient of this age. Chilo Antoine MD CT Angiography 11/09/17 0000 Signed Impressions: Service Date/Time: Thursday, November 09, 2017 15:56 - CONCLUSION: No evidence of pulmonary embolism Timbo Cazares MD Objective Remarks AAox3 NAD PERRLA Lungs with severely diminished air entry in bilateral lung espitia, no wheezing or rhonchi, crackles auscultated. S1-S2 regular rate and rhythm, no murmur rubs or gallops. Abdomen is soft, nontender nondistended. Extremities without edema, pedal pulses palpable. There is no JVD. Procedures None A/P Problem List: (1) COPD exacerbation ICD Code: J44.1 - Chronic obstructive pulmonary disease with (acute) exacerbation (2) Chest pain ICD Code: R07.9 - Chest pain, unspecified (3) Rhabdomyolysis ICD Code: M62.82 - Rhabdomyolysis Status: Acute (4) Alcohol withdrawal ICD Code: F10.239 - Alcohol dependence with withdrawal, unspecified Assessment and Plan (1) COPD exacerbation Severely diminished air entry bilateral lung espitia. IV Solu-Medrol Duo nebs as scheduled and as needed On p.o. Levaquin 11/11 taper IV Zometa dose to 40 mg IV every 8 hours. Air entry improving. (2) Chest pain Suspect secondary to COPD exacerbation. Troponin negative 3 with elevated CK-MB likely related to rhabdomyolysis. Continue to monitor CPK. Chest pain-free Patient will likely need a nuclear stress testing once more stable. (3) Rhabdomyolysis Continue IV fluids CPK trending down from [id number]. Continue to monitor CPK. (4) Alcohol withdrawal DVT prophylaxis: Add heparin subcutaneously. GI prophylaxis: Add PPI since patient will be on IV steroids. Discharge Planning Patient with COPD exacerbation and rhabdomyolysis. Pending clinical improvement Problem Qualifiers (1) Rhabdomyolysis: Qualified Codes: M62.82 - Rhabdomyolysis (2) Alcohol withdrawal: Qualified Codes: F10.230 - Alcohol dependence with withdrawal, uncomplicated Abando,Chinmay Jo MD Nov 12, 2017 02:59
[2017-11-12] MEDS: methylPREDNISolone SOD SUCC 40 MG/1 ML VIAL IV PUSH SCH (05:05)
[2017-11-12] MEDS: RESP: ALBUTEROL 2.5 MG/IPRATROPIUM 0.5 MG NEB (SCH) NEB ×2 (08:25→11:47)
[2017-11-12] MEDS: ASPIRIN EC 325 MG TABEC PO SCH (08:58)
[2017-11-12] MEDS: THIAMINE HCL 100 MG TAB PO SCH (08:58)
[2017-11-12] MEDS: SODIUM CHLORIDE 0.9% FLUSH 10 ML FLUSH IV FLUSH SCH (09:00)
[2017-11-12 09:01] LABS: BICARBONATE 23.7 MEQ/L (21.0-32.0); CALCIUM 8.6 MG/DL (8.5-10.1); CREATININE 0.67 MG/DL (0.60-1.30)
[2017-11-12 09:02] LABS: PHOSPHORUS 2.3 MG/DL (2.5-4.9)
[2017-11-12] MEDS ORDERED: predniSONE 20 MG TAB PO SCH (11:15)
--- NOTE | 2017-11-12 11:59 | HHI.DCPOC ---
Discharge Care Plan Diagnosis: (1) COPD exacerbation Your Health Problems Are: Difficulty with ADL Exercise Tolerance Goals to Promote Your Health * To prevent worsening of your condition and complications * To maintain your health at the optimal level Directions to Meet Your Goals Take your medications as prescribed Follow your dietary instruction Follow activity as directed Keep your appointments as scheduled Take your immunizations and boosters as scheduled If your symptoms worsen call your PCP, if no PCP go to Urgent Care Center or Emergency Room Smoking is Dangerous to Your Health. Avoid second hand smoke Call the 24-hour hour crisis hotline for domestic abuse at Chinmay Koroma MD Nov 12, 2017 11:59
[2017-11-12] MEDS ORDERED: LEVA750T9 PO (12:02)
[2017-11-12] MEDS ORDERED: IPRA17I INH (12:02)
[2017-11-12] MEDS ORDERED: VENTAER INH (12:02)
[2017-11-12] MEDS ORDERED: AMLO10 PO (12:04)
[2017-11-12] MEDS ORDERED: K-PHTAB PO (12:09)
[2017-11-12] MEDS ORDERED: THIA100 PO (12:09)
[2017-11-12] MEDS ORDERED: ASPI81TA23 PO (12:09)
[2017-11-12] MEDS ORDERED: CHLO10CA5 PO (12:09)
[2017-11-12] MEDS ORDERED: PRED20 PO (12:09)
--- NOTE | 2017-11-12 12:40 | HHI.DS ---
Discharge Summary Admission Date Nov 09, 2017 at 21:47 Discharge Date: Nov 12, 2017 Admitting Diagnosis rhabdomyolysis, r/o ACS (1) COPD exacerbation ICD Code: J44.1 - Chronic obstructive pulmonary disease with (acute) exacerbation Diagnosis: Principal (2) Chest pain ICD Code: R07.9 - Chest pain, unspecified Diagnosis: Principal (3) Rhabdomyolysis ICD Code: M62.82 - Rhabdomyolysis Diagnosis: Principal Status: Acute (4) Alcohol withdrawal ICD Code: F10.239 - Alcohol dependence with withdrawal, unspecified Diagnosis: Principal Procedures None Brief History - From Admission yesterday did not feel right felt off balance today, went to work, and did not feel well called ambulance nausea and vomited was having chest pains and tightness left arm numb and tingling nothing better or worse took his bp medsn and lipitor but nothing happened swating nasueaous cold clammy feelign bad all night episodes come and go this am as well, 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 ankle swelling a week ago last stress test 6-7 yrs ago has hx of copd no cough, no fever but felt warm felt sinus symptoms CBC/BMP: 11/11/17 0845 11/12/17 0700 Significant Findings Laboratory Tests Test 11/09/17 12:45 11/09/17 17:45 11/09/17 23:20 11/10/17 07:05 Urine Glucose (UA) 150 mg/dL (NEG) Urine Ketones 10 mg/dL (NEG) Urine Mucus FEW /lpf (OCC) Total Creatine Kinase 2063 U/L (39-308) 2779 U/L (39-308) Creatine Kinase MB 11.2 NG/ML (0.5-3.6) 13.9 NG/ML (0.5-3.6) Troponin I LESS THAN 0.02 NG/ML Red Blood Count 4.32 MIL/MM3 (4.50-5.90) Monocytes (%) (Auto) 10.8 % (0.0-8.0) Blood Urea Nitrogen 5 MG/DL (7-18) Albumin 3.3 GM/DL (3.4-5.0) Calcium Level 7.8 MG/DL (8.5-10.1) Aspartate Amino Transf (AST/SGOT) 71 U/L (15-37) Test 11/11/17 08:45 11/12/17 07:00 Neutrophils (%) (Auto) 85.0 % (16.0-70.0) Random Glucose 173 MG/DL (74-106) 153 MG/DL (74-106) Phosphorus Level 1.6 MG/DL (2.5-4.9) 2.3 MG/DL (2.5-4.9) Aspartate Amino Transf (AST/SGOT) 59 U/L (15-37) Total Creatine Kinase 1768 U/L (39-308) 585 U/L (39-308) Creatine Kinase MB 8.9 NG/ML (0.5-3.6) Potassium Level 3.4 MEQ/L (3.5-5.1) Chloride Level 112 MEQ/L (98-107) Imaging Last Impressions Chest X-Ray 11/09/17 1108 Signed Impressions: Service Date/Time: Thursday, November 09, 2017 11:25 - CONCLUSION: No acute disease. There is no evidence of pneumonia. Vikram Ventura MD Head CT 11/09/17 0000 Signed Impressions: Service Date/Time: Thursday, November 09, 2017 18:18 - CONCLUSION: Normal examination for a patient of this age. Chilo Antoine MD CT Angiography 11/09/17 0000 Signed Impressions: Service Date/Time: Thursday, November 09, 2017 15:56 - CONCLUSION: No evidence of pulmonary embolism Timbo Cazares MD PE at Discharge AAox3 NAD PERRLA Lungs with severely diminished air entry in bilateral lung espitia, no wheezing or rhonchi, crackles auscultated. S1-S2 regular rate and rhythm, no murmur rubs or gallops. Abdomen is soft, nontender nondistended. Extremities without edema, pedal pulses palpable. There is no JVD. Hospital Course (1) COPD exacerbation Improved continue p.o. Levaquin and wean steroid. Increase activity as tolerated 2. Chest pain suspect secondary to COPD exacerbation. Ruled out for [place]. Patient will likely need a nuclear stress testing once more stable. Prescription for Lexiscan provided to patient (3) Rhabdomyolysis. Improved with IV hydration. Discontinue IV fluids patient with good oral intake (4) Alcohol withdrawal. Stable continue CIWA protocol and wean Librium consult regarding benzodiazepines DVT prophylaxis: Added heparin subcutaneously. GI prophylaxis: Add PPI since patient will be on steroids. Pt Condition on Discharge: Stable Discharge Disposition: Discharge Home Discharge Time: > 30 minutes Discharge Instructions DIET: Follow Instructions for: Heart Healthy Diet Activities you can perform: Regular-No Restrictions Activities to Avoid: Driving Follow up Referrals: Appointment for Follow Up - 1 Week with Pulmonary rehab PCP Follow-up - 1 Week New Medications: Albuterol 18 GM Inh (Ventolin Hfa 18 GM Inh) 90 Mcg/Act Aer 2 PUFF INH Q4H PRN for SHORTNESS OF BREATH, #1 INHALER [address] (Aspirin EC) 81 Mg Tabdr 81 MG PO DAILY for Prevent Blood Clot, #30 TAB 0 Refills Ipratropium HFA 12.9 GM Inh (Atrovent HFA 12.9 GM Inh) 17 Mcg/Actuation Aer 2 PUFF INH Q6HR for Breathing Treatment, #1 INHALER 0 Refills Amlodipine (Norvasc) 10 Mg Tab 10 MG PO DAILY@1700 for Blood Pressure Management, #30 TAB Chlordiazepoxide HCl (Chlordiazepoxide HCl) 10 Mg Capsule 20 MG PO TID for Alcohol Detox, #12 CAP one pill three times daily for 2 days then one pill daily twice daily for 2 days then once daily for 2 days Levofloxacin (Levaquin) 750 Mg Tablet 750 MG PO DAILY@1800 for Infection, #3 TAB Potassium Phosphate Monobasic (K-Phos) 500 Mg Tab 1000 MG PO Q12HR for Electrolyte Replacement, #3 TAB Prednisone (Prednisone) 20 Mg Tab 40 MG PO DAILY for Control Inflammation, #6 TAB Thiamine HCl (Gnp Vitamin B-1) 100 Mg Tab 100 MG PO DAILY for Alcohol Detox, #30 TAB Chinmay Koroma MD Nov 12, 2017 12:40
[2017-11-12] MEDS ORDERED: POTASSIUM PHOSPHATE MONOBASIC 500 MG TAB PO SCH (13:00)
== END 2017-11-12 15:05 | disposition home or self-care (01) | DRG 191 ==
LOC: NEPC 10:21 → INTOOBSV 17:03 → NEDA 17:03 → N04A 20:08 → OBSVTOIN 21:47 → N04B 11-10 21:55 → N04A 11-10 22:12
PROVIDERS: ADMIT Internal Medicine; ATTEND Internal Medicine
DX: J44.1 Chronic obstructive pulmonary disease with (acute) exacerbation (principal); M62.82 Rhabdomyolysis; F10.230 Alcohol dependence with withdrawal, uncomplicated; I10 Essential (primary) hypertension; E78.5 Hyperlipidemia, unspecified; R00.0 Tachycardia, unspecified; I45.10 Unspecified right bundle-branch block; R51 Headache; Z86.73 Personal history of transient ischemic attack (TIA), and cerebral infarction without residual deficits; Z87.891 Personal history of nicotine dependence; Z91.19 Patient's noncompliance with other medical treatment and regimen
CPT/HCPCS: 70450; 71045; 71275; 80048; 80053; 81001; 82550; 82552; 83735; 83880; 84100; 84484; 85025; 85610; 85730; 93005; 94640; 94664; 96361; 96374; 96375; J2060; J2405; J2550; J2920; J2930; J3475; J7030; J7040; J7120; J7512; Q9967

== ENCOUNTER 2018-01-26 19:58 | Inpatient (IN) | payer OTHER ==
[~2018-01-26] VITALS: Ht 172.7 cm; Wt 88.5 kg
[~2018-01-26 19:58] MED LIST: AMLO10 PO; ASPI81TA23 PO; CHLO10CA5 PO; IPRA17I INH; K-PHTAB PO; LEVA750T9 PO; PRED20 PO; THIA100 PO; VENTAER INH
[2018-01-26] MEDS ORDERED: IOHEXOL 350 MG/ML 10 ML VIAL (for RAD DIAG) IVCONTRAST ONE (19:59)
[2018-01-26 20:41] VITALS: BP 151/76; PULSE 100; RESP 16; TEMP 98.6; O2SAT 98
--- NOTE | 2018-01-26 23:38 | PD ---
HPI Chief Complaint: Psychiatric Symptoms Time Seen by Provider: 23:04 Travel History International Travel<30 days: No Contact w/Intl Traveler<30days: No Traveled to known affect area: No History of Present Illness HPI 57-year-old white male presents emergency department on a voluntary basis as a transfer from [facility] for evaluation of his depression with suicidal ideation. He had gone to [facility] on a voluntary basis but he is beyond their scope of practice due to his COPD. Patient states that he has chronic shortness of breath and uses a nebulizer along with other multiple inhalers. Patient has had increasing depression over the last several weeks to months. He has had issues performing his daily activities at work. He has had relationship issues with his . They live in the same house but live separate lives. Patient feels that he can no longer work. He started drinking again. He states that he had been sober but now has been off the wagon now for the last 2 weeks. He drinks beer and wine. He drank prior to coming in today. Patient complains of feeling cramping and tremulous. He also states that he has congestion, cough, shortness of breath and wheezing. Patient denies any anginal chest pain. No fever chills. No nausea vomiting. No abdominal pain or urinary symptoms. PFSH Past Medical History Narrative Medical COPD, depression, hypercholesterolemia, GERD, chronic left elbow and chronic lower back pain Anxiety: No Depression: No Heart Rhythm Problems: No High Cholesterol: Yes Chest Pain: No Congestive Heart Failure: No COPD: Yes Diminished Hearing: No Hypertension: Yes Implanted Vascular Access Dvce: Yes Tetanus Vaccination: Unknown Influenza Vaccination: No Past Surgical History Narrative Surgical Multiple left elbow surgeries, lumbar discectomy and fusion Abdominal Surgery: No Body Medical Devices: screws from back fusion Cardiac Surgery: No Ear Surgery: No Endocrine Surgery: No Eye Surgery: No Genitourinary Surgery: No Gynecologic Surgery: No Oral Surgery: No Thoracic Surgery: No Social History Alcohol Use: Yes ("A LOT") Tobacco Use: No Substance Use: No Allergies-Medications (Allergen,Severity, Reaction): Coded Allergies: No Known Allergies (Unverified , 01/26/18) Reported Meds & Prescriptions Reported Meds & Active Scripts Active Gnp Vitamin B-1 (Thiamine HCl) 100 Mg Tab 100 Mg PO DAILY Prednisone 20 Mg Tab 40 Mg PO DAILY K-Phos (Potassium Phosphate Monobasic) 500 Mg Tab 1,000 Mg PO Q12HR Chlordiazepoxide HCl 10 Mg Capsule 20 Mg PO TID one pill three times daily for 2 days then one pill daily twice daily for 2 days then once daily for 2 days Aspirin EC (Aspirin) 81 Mg Tabdr 81 Mg PO DAILY Norvasc (Amlodipine Besylate) 10 Mg Tab 10 Mg PO DAILY@1700 Atrovent HFA 12.9 GM Inh (Ipratropium [place]) 17 Mcg/Actuation Aer 2 Puff INH Q6HR Ventolin Hfa 18 GM Inh (Albuterol Sulfate) 90 Mcg/Act Aer 2 Puff INH Q4H PRN Levaquin (Levofloxacin) 750 Mg Tablet 750 Mg PO DAILY@1800 Review of Systems Except as stated in HPI: all other systems reviewed are Neg Psychiatric: Positive: Depression, Suicidal Ideations, Mood Disorder, Substance Abuse, Homicidal Ideation, No: Anxiety, Disorder of Thought Physical Exam Narrative GENERAL: Well-nourished, well-developed patient. SKIN: Warm and dry. HEAD: Normocephalic and atraumatic. EYES: No scleral icterus. No injection or drainage. ENT: No nasal drainage noted. Mucous membranes pink. Airway patent. NECK: Supple, trachea midline. Moves head freely without obvious discomfort. CARDIOVASCULAR: Regular rate and rhythm without murmurs, gallops, or rubs. RESPIRATORY: Breath sounds decreased bilaterally. Few fine expiratory wheezes no accessory muscle use. GASTROINTESTINAL: Abdomen soft, non-tender, nondistended. EXTREMITIES: No cyanosis or edema. BACK: Nontender without obvious deformity. No CVA tenderness. NEURO: Patient is alert and oriented. no sensorimotor deficits. Nonfocal. Normal speech. PSYCH: No delusions. No auditory or visual hallucinations. Data Data Last Documented VS Vital Signs Date Time Temp Pulse Resp B/P (MAP) Pulse Ox O2 Delivery O2 Flow Rate FiO2 01/26/18 20:41 98.6 100 16 151/76 (101) 98 Orders Orders Complete Blood Count With Diff (01/26/18 23:32) Comprehensive Metabolic Panel (01/26/18 23:32) Thyroid Stimulating Hormone (01/26/18 23:32) Psych Screen (01/26/18 23:32) Drug Screen, Random Urine (01/26/18 23:32) Alcohol (Ethanol) (01/26/18 23:32) Salicylates (Aspirin) (01/26/18 23:32) Tylenol (Acetaminophen) (01/26/18 23:32) Magnesium (Mg) (01/26/18 23:32) Albuterol-Ipratropium Neb (Duoneb Neb) (01/26/18 23:45) Labs Laboratory Tests Test 01/26/18 23:45 White Blood Count 10.3 TH/MM3 Red Blood Count 5.04 MIL/MM3 Hemoglobin 15.6 GM/DL Hematocrit 44.9 % Mean Corpuscular Volume 89.2 FL Mean Corpuscular Hemoglobin 31.0 PG Mean Corpuscular Hemoglobin Concent 34.7 % Red Cell Distribution Width 14.0 % Platelet Count 172 TH/MM3 Mean Platelet Volume 7.5 FL Neutrophils (%) (Auto) 56.1 % Lymphocytes (%) (Auto) 36.0 % Monocytes (%) (Auto) 6.3 % Eosinophils (%) (Auto) 0.8 % Basophils (%) (Auto) 0.8 % Neutrophils # (Auto) 5.8 TH/MM3 Lymphocytes # (Auto) 3.7 TH/MM3 Monocytes # (Auto) 0.7 TH/MM3 Eosinophils # (Auto) 0.1 TH/MM3 Basophils # (Auto) 0.1 TH/MM3 CBC Comment DIFF FINAL Differential Comment Blood Urea Nitrogen 11 MG/DL Creatinine 0.86 MG/DL Random Glucose 86 MG/DL Total Protein 8.0 GM/DL Albumin 4.5 GM/DL Calcium Level 8.4 MG/DL Magnesium Level 1.7 MG/DL Alkaline Phosphatase 103 U/L Aspartate Amino Transf (AST/SGOT) 50 U/L Alanine Aminotransferase (ALT/SGPT) 46 U/L Total Bilirubin 0.4 MG/DL Sodium Level 136 MEQ/L Potassium Level 3.7 MEQ/L Chloride Level 98 MEQ/L Carbon Dioxide Level 21.2 MEQ/L Anion Gap 17 MEQ/L Estimat Glomerular Filtration Rate 91 ML/MIN Thyroid Stimulating Hormone 3rd Gen 4.110 uIU/ML Salicylates Level LESS THAN 1.7 MG/DL Acetaminophen Level LESS THAN 2.0 MCG/ML Ethyl Alcohol Level 247 MG/DL MDM Medical Decision Making Medical Screen Exam Complete: Yes Emergency Medical Condition: Yes Medical Record Reviewed: Yes Interpretation(s) Laboratory Tests Test 01/26/18 23:45 White Blood Count 10.3 TH/MM3 Red Blood Count 5.04 MIL/MM3 Hemoglobin 15.6 GM/DL Hematocrit 44.9 % Mean Corpuscular Volume 89.2 FL Mean Corpuscular Hemoglobin 31.0 PG Mean Corpuscular Hemoglobin Concent 34.7 % Red Cell Distribution Width 14.0 % Platelet Count 172 TH/MM3 Mean Platelet Volume 7.5 FL Neutrophils (%) (Auto) 56.1 % Lymphocytes (%) (Auto) 36.0 % Monocytes (%) (Auto) 6.3 % Eosinophils (%) (Auto) 0.8 % Basophils (%) (Auto) 0.8 % Neutrophils # (Auto) 5.8 TH/MM3 Lymphocytes # (Auto) 3.7 TH/MM3 Monocytes # (Auto) 0.7 TH/MM3 Eosinophils # (Auto) 0.1 TH/MM3 Basophils # (Auto) 0.1 TH/MM3 CBC Comment DIFF FINAL Differential Comment Blood Urea Nitrogen 11 MG/DL Creatinine 0.86 MG/DL Random Glucose 86 MG/DL Total Protein 8.0 GM/DL Albumin 4.5 GM/DL Calcium Level 8.4 MG/DL Magnesium Level 1.7 MG/DL Alkaline Phosphatase 103 U/L Aspartate Amino Transf (AST/SGOT) 50 U/L Alanine Aminotransferase (ALT/SGPT) 46 U/L Total Bilirubin 0.4 MG/DL Sodium Level 136 MEQ/L Potassium Level 3.7 MEQ/L Chloride Level 98 MEQ/L Carbon Dioxide Level 21.2 MEQ/L Anion Gap 17 MEQ/L Estimat Glomerular Filtration Rate 91 ML/MIN Thyroid Stimulating Hormone 3rd Gen 4.110 uIU/ML Salicylates Level LESS THAN 1.7 MG/DL Acetaminophen Level LESS THAN 2.0 MCG/ML Ethyl Alcohol Level 247 MG/DL Differential Diagnosis MDM: High Differential diagnoses: Schizophrenia, schizoaffective disorder, bipolar, anxiety, depression, adjustment reaction, mood disorder NOS, ODD, depressive disorder NOS,psychosis NOS, substance induced mood disorder, infection, electrolyte abnormality, malingering. Narrative Course Mental health screening discussed with the patient. Psychiatric screen ordered. The patient is given albuterol Atrovent nebulizer treatment. Routine laboratory tests and for analysis. Diagnosis Primary Impression: Medical clearance for psychiatric admission Additional Impressions: COPD Chronic alcohol abuse Condition: Stable Chilo Whitaker Jan 26, 2018 23:38
[2018-01-26] MEDS ORDERED: RESP: ALBUTEROL 2.5 MG/IPRATROPIUM 0.5 MG NEB (SCH) INH ONE (23:45)
[2018-01-26 23:53] LABS: AUTOMATED NEUTROPHIL # 5.8 TH/MM3 (1.8-7.7); BASOPHIL # 0.1 TH/MM3 (0-0.2); BASOPHIL % 0.8 % (0.0-2.0); EOSINOPHIL # 0.1 TH/MM3 (0-0.4); EOSINOPHIL % 0.8 % (0.0-4.0); HEMATOCRIT 44.9 % (39.0-51.0); HEMOGLOBIN 15.6 GM/DL (13.0-17.0); LYMPHOCYTE # 3.7 TH/MM3 (1.0-4.8); MEAN CELL VOLUME 89.2 FL (80.0-100.0); MEAN CORPUSCULAR HGB CONC 34.7 % (32.0-36.0); MEAN PLATELET VOLUME 7.5 FL (7.0-11.0); MONO % 6.3 % (0.0-8.0); MONOCYTE # 0.7 TH/MM3 (0-0.9); NEUT % 56.1 % (16.0-70.0); PLATELET COUNT 172 TH/MM3 (150-450); RED BLOOD COUNT 5.04 MIL/MM3 (4.50-5.90); WHITE BLOOD COUNT 10.3 TH/MM3 (4.0-11.0)
[2018-01-27] VITALS (15 sets, daily range): BP systolic 130–173; BP diastolic 71–102; PULSE 97–122; RESP 17–22; TEMP 98.2–98.6; O2SAT 91–98
[2018-01-27 00:11] LABS: ALBUMIN 4.5 GM/DL (3.4-5.0); ALT (GPT) 46 U/L (12-78); AST (GOT) 50 U/L (15-37); BICARBONATE 21.2 MEQ/L (21.0-32.0); BLOOD UREA NITROGEN 11 MG/DL (7-18); CALCIUM 8.4 MG/DL (8.5-10.1); CHLORIDE 98 MEQ/L (98-107); CREATININE 0.86 MG/DL (0.60-1.30); GLOMERULAR FILTRATION RATE 91 ML/MIN (>89); GLUCOSE,RANDOM 86 MG/DL (74-106); MAGNESIUM 1.7 MG/DL (1.5-2.5); SODIUM (NA) 136 MEQ/L (136-145)
[2018-01-27 00:20] LABS: ALKALINE PHOSPHATASE 103 U/L (45-117); TOTAL BILIRUBIN ADULT 0.4 MG/DL (0.2-1.0)
[2018-01-27 00:28] LABS: ACETAMINOPHEN LESS THAN 2.0 MCG/ML (10.0-30.0)
[2018-01-27] MEDS ORDERED: LORazepam 1 MG TAB PO PRN (08:00)
[2018-01-27] MEDS ORDERED: PROMETHAZINE INJ 25 MG/ML VIAL IM ONE (08:00)
[2018-01-27] MEDS ORDERED: FLUMAZENIL 0.5 MG/5 ML VIAL IV PUSH PRN (08:00)
[2018-01-27] MEDS ORDERED: LORazepam 2 MG/ML VIAL IM ONE (08:00)
[2018-01-27] MEDS ORDERED: LORazepam 2 MG TAB PO PRN (08:00)
[2018-01-27] MEDS ORDERED: RESP: ALBUTEROL 2.5 MG/3 ML NEB (PRN) NEB (08:00)
[2018-01-27] MEDS ORDERED: LORazepam 2 MG/ML VIAL IV PUSH PRN ×4 (08:00)
[2018-01-27] MEDS ORDERED: ONDANSETRON ODT 4 MG TAB PO PRN ×2 (08:00→15:15)
--- NOTE | 2018-01-27 08:10 | PD.PSY.CON ---
Provisional Diagnosis Admission Date Date of consultation 01/27/18 [place] I. 1. Alcohol dependence and mild withdrawal [place] II. Deferred History of Present Illness Service Psychiatry Consult Requested By Emergency department Reason for Consult Psychiatric evaluation Primary Care Physician No Primary Care Physician HPI Mr. Brody is a 57-year-old male with a history of alcohol use issues sent voluntarily from [facility] after presenting there for detoxification services. He was reportedly beyond their scope of care secondary to COPD. Alcohol level on presentation here was 247. Reviewing the electronic medical record, I see no previous psychiatric contact within our system. Patient seen and examined. Chart reviewed. Case discussed with nursing staff. There has been no evidence of any suicidality or homicidality while the patient has been under observation in the ED. Nurse reports that overnight efforts were made to get the patient to detoxification services, but he declined. He is presently clinically sober at the time of my evaluation and is in mild withdrawal. On my examination today, the patient is focused primarily on his physical complaints, namely cramping and tremulousness. He also complains of some wheezing associated with his COPD. I have instructed nurse to have ED PA re-evaluate patient from the medical perspective. Presently, patient continues to seek for detox services. He has no current suicidal or homicidal ideation, intent or plan. I can elicit no depressive or hypomanic/ manic symptoms, although affect is a little dysphoric likely secondary to withdrawal/possible drug-induced mood disorder. He denies any audiovisual hallucinations. I can elicit no delusional material. There is no evidence of impairment in reality construction. Remainder of the psychiatric ROS is negative. No acute physical complaints. Past psychiatric history: Patient reports a history only of alcoholism. He is not under the care of an outpatient psychiatrist. He denies any history of psychiatric admissions. Denies any history of suicide attempts. Family history: Patient is adopted and knows nothing of his family psychiatric history. Chemical dependency history: The patient reports that he had been doing well in but relapsed 2 weeks ago. He binge drinks and says that he consumes "a big bottle of wine" daily. He denies any history of DTs or seizures. His longest sober time is 2 months. Social history: The patient lives with his . He has no children. He has a grade 12 education. He is unemployed. He denies any history. He does have a history of DUI but reports no other legal history. He denies any access to guns or firearms. He is a [employer]ist. He denies any history of abuse. Review of Systems Except as stated in HPI: all other systems reviewed are Neg Past Family Social History Coded Allergies: No Known Allergies (Unverified , 01/26/18) Past Medical History See EMR Active Scripts Thiamine HCl (Gnp Vitamin B-1) 100 Mg Tab, 100 MG PO DAILY for Alcohol Detox, # 30 TAB Prov:Chinmay Koroma MD 11/12/17 Prednisone (Prednisone) 20 Mg Tab, 40 MG PO DAILY for Control Inflammation, #6 TAB Prov:Chinmay Koroma MD 11/12/17 Potassium Phosphate Monobasic (K-Phos) 500 Mg Tab, 1000 MG PO Q12HR for Electrolyte Replacement, #3 TAB Prov:Chinmay Koroma MD 11/12/17 Chlordiazepoxide HCl (Chlordiazepoxide HCl) 10 Mg Capsule, 20 MG PO TID for Alcohol Detox, #12 CAP one pill three times daily for 2 days then one pill daily twice daily for 2 days then once daily for 2 days Prov:Chinmay Koroma MD 11/12/[address] (Aspirin EC) 81 Mg Tabdr, 81 MG PO DAILY for Prevent Blood Clot, #30 TAB 0 Refills Prov:Chinmay Koroma MD 11/12/17 Amlodipine (Norvasc) 10 Mg Tab, 10 MG PO DAILY@1700 for Blood Pressure Management, #30 TAB Prov:Chinmay Koroma MD 11/12/17 Ipratropium HFA 12.9 GM Inh (Atrovent HFA 12.9 GM Inh) 17 Mcg/Actuation Aer, 2 PUFF INH Q6HR for Breathing Treatment, #1 INHALER 0 Refills Prov:Chinmay Koroma MD 11/12/17 Albuterol 18 GM Inh (Ventolin Hfa 18 GM Inh) 90 Mcg/Act Aer, 2 PUFF INH Q4H Y for SHORTNESS OF BREATH, #1 INHALER 0 Refills Prov:Chinmay Koroma MD 11/12/17 Levofloxacin (Levaquin) 750 Mg Tablet, 750 MG PO DAILY@1800 for Infection, #3 TAB Prov:Chinmay Koroma MD 11/12/17 Current Medications Medications (Trade) Dose Ordered Sig/Gera Route Start Time Stop Time Status Last Admin (Zofran Odt) 4 mg Q8H PRN PO 01/27/18 08:00 (Tylenol) 650 mg Q4H PRN PO 01/27/18 08:00 (Motrin) 600 mg Q8H PRN PO 01/27/18 08:00 (Albuterol Neb) 2.5 mg Q4HR NEB PRN NEB 01/27/18 08:00 (Romazicon Inj) 0.2 mg Q1M PRN IV PUSH 01/27/18 08:00 (Ativan) 1 mg Q4H PRN PO 01/27/18 08:00 (Ativan Inj) 1 mg Q4H PRN IV PUSH 01/27/18 08:00 (Ativan) 2 mg Q2H PRN PO 01/27/18 08:00 (Ativan Inj) 2 mg Q2H PRN IV PUSH 01/27/18 08:00 (Ativan Inj) 2 mg Q1H PRN IV PUSH 01/27/18 08:00 (Ativan Inj) 2 mg Q15M PRN IV PUSH 01/27/18 08:00 Patient's Strengths (min. 2) Seeking help for alcohol use issues. Appears to be attending to basic needs. Physical Exam Physical exam completed by ED provider. On my examination today, patient appears to be in mild acute physical distress secondary to physical complaints noted above. He has a mild resting tremor but no diaphoresis, no mydriasis, no other signs of GABAergic withdrawal. No other motor abnormalities noted. Labs and vitals reviewed: Vital Signs Vital Signs Date Time Temp Pulse Resp B/P (MAP) Pulse Ox O2 Delivery O2 Flow Rate FiO2 01/27/18 02:21 110 18 146/75 (98) 95 01/26/18 20:41 98.6 Lab Results Test 01/26/18 23:45 01/27/18 01:35 White Blood Count 10.3 TH/MM3 Red Blood Count 5.04 MIL/MM3 Hemoglobin 15.6 GM/DL Hematocrit 44.9 % Mean Corpuscular Volume 89.2 FL Mean Corpuscular Hemoglobin 31.0 PG Mean Corpuscular Hemoglobin Concent 34.7 % Red Cell Distribution Width 14.0 % Platelet Count 172 TH/MM3 Mean Platelet Volume 7.5 FL Neutrophils (%) (Auto) 56.1 % Lymphocytes (%) (Auto) 36.0 % Monocytes (%) (Auto) 6.3 % Eosinophils (%) (Auto) 0.8 % Basophils (%) (Auto) 0.8 % Neutrophils # (Auto) 5.8 TH/MM3 Lymphocytes # (Auto) 3.7 TH/MM3 Monocytes # (Auto) 0.7 TH/MM3 Eosinophils # (Auto) 0.1 TH/MM3 Basophils # (Auto) 0.1 TH/MM3 CBC Comment DIFF FINAL Differential Comment Blood Urea Nitrogen 11 MG/DL Creatinine 0.86 MG/DL Random Glucose 86 MG/DL Total Protein 8.0 GM/DL Albumin 4.5 GM/DL Calcium Level 8.4 MG/DL Magnesium Level 1.7 MG/DL Alkaline Phosphatase 103 U/L Aspartate Amino Transf (AST/SGOT) 50 U/L Alanine Aminotransferase (ALT/SGPT) 46 U/L Total Bilirubin 0.4 MG/DL Sodium Level 136 MEQ/L Potassium Level 3.7 MEQ/L Chloride Level 98 MEQ/L Carbon Dioxide Level 21.2 MEQ/L Anion Gap 17 MEQ/L Estimat Glomerular Filtration Rate 91 ML/MIN Thyroid Stimulating Hormone 3rd Gen 4.110 uIU/ML Salicylates Level LESS THAN 1.7 MG/DL Acetaminophen Level LESS THAN 2.0 MCG/ML Ethyl Alcohol Level 247 MG/DL Urine Opiates Screen NEG Urine Barbiturates Screen NEG Urine Amphetamines Screen NEG Urine Benzodiazepines Screen NEG Urine Cocaine Screen NEG Urine Cannabinoids Screen NEG Mental Status Examination Appearance: Appropriate Consciousness: Alert Orientation: x4 Motor Activity: Other (Motor exam as above) Speech: Unremarkable Language: Adequate Fund of Knowledge: Adequate Attention and Concentration: Adequate Memory: Unremarkable (Grossly intact on clinical exam) Mood: Appropriate Affect: Other (Mildly dysphoric) Thought Process & Associations: Intact, Logical, Goal directed, Linear Thought Content: Appropriate Hallucination Type: None Delusion Type: None Suicidal Ideation: No Suicidal Plan: No Suicidal Intention: No Homicidal Ideation: No Homicidal Plan: No Homicidal Intention: No Mental Status Exam Remarks Insight and judgment are perhaps fair Assessment & Plan Problem List: (1) Alcohol dependence with uncomplicated withdrawal ICD Codes: F10.230 - Alcohol dependence with withdrawal, uncomplicated Assessment & Plan 57-year-old male with psychiatric history as detailed above who presents voluntarily for psychiatric evaluation in transfer from [facility]. Patient is seeking for detoxification services. He was reportedly offered a detox bed overnight but declined but now says that he wants detox once again. He has no current suicidal or homicidal ideation presently. There is no evidence of unstable mental illness as defined under the [place] act in this patient at this time. There is no evidence of self-care deficit secondary to mental illness as defined under the [place] act in this patient at this time. The patient does not meet the [place] act criteria. I have instructed the nursing staff to have the patient reevaluated by the ED provider for his physical complaints. I note that a CIWA scale with Ativan as already ordered. I have instructed the nurse to refer the patient for detoxification services. If every reasonable avenue for possible detox has been explored and inpatient detox cannot be arranged today, I recommend referring the patient for ambulatory chemical dependency evaluation and treatment so long as he is safe to discharge from the withdrawal standpoint. I have supported the patient in his desire for abstinence from alcohol. I have counseled the patient regarding warning signs for need to return to the psychiatric emergency room as part of a general safety plan. Thank you very much for this consultation. Mateo Arreola MD Jan 27, 2018 08:10
--- NOTE | 2018-01-27 08:18 | PD ---
Physical Exam Date Seen by Provider: Jan 27, 2018 Time Seen by Provider: 08:15 Narrative For full history and physical examinations please see previous providers notes. I was asked to assess patient this morning when he stated he felt tremulous, had abdominal cramping, nauseated and short of breath. GENERAL: Well-developed, well-nourished, alert male. Appears uncomfortable. SKIN: Warm and dry. HEAD: Atraumatic. Normocephalic. EYES: Pupils equal and round. No scleral icterus. No injection or drainage. ENT: No nasal bleeding or discharge. Mucous membranes pink and moist. NECK: Trachea midline. No JVD. CARDIOVASCULAR: Tachycardic RESPIRATORY: No accessory muscle use. Clear to auscultation. Breath sounds equal bilaterally. No wheezes, rhonchi, rales noted. GASTROINTESTINAL: Abdomen soft, non-tender, nondistended. Hepatic and splenic margins not palpable. MUSCULOSKELETAL: Extremities without clubbing, cyanosis, or edema. No obvious deformities. NEUROLOGICAL: Awake and alert. No obvious cranial nerve deficits. Motor grossly within normal limits. Five out of 5 muscle strength in the arms and legs. Normal speech. Tremulous PSYCHIATRIC: Anxious mood and affect; insight and judgment normal. Data Data Last Documented VS Vital Signs Date Time Temp Pulse Resp B/P (MAP) Pulse Ox O2 Delivery O2 Flow Rate FiO2 01/27/18 14:24 106 17 158/93 (114) 97 Nasal Cannula 2.00 01/26/18 20:41 98.6 Orders Orders Complete Blood Count With Diff (01/26/18 23:32) Comprehensive Metabolic Panel (01/26/18 23:32) Thyroid Stimulating Hormone (01/26/18 23:32) Psych Screen (01/26/18 23:32) Drug Screen, Random Urine (01/26/18 23:32) Alcohol (Ethanol) (01/26/18 23:32) Salicylates (Aspirin) (01/26/18 23:32) Tylenol (Acetaminophen) (01/26/18 23:32) Magnesium (Mg) (01/26/18 23:32) Albuterol-Ipratropium Neb (Duoneb Neb) (01/26/18 23:45) Diet Regular Basic (01/27/18 Breakfast) Lorazepam Inj (Ativan Inj) (01/27/18 08:00) Promethazine Inj (Phenergan Inj) (01/27/18 08:00) Bedside Glucose JEROD.CSUGAR (01/27/18 08:00) Alcohol Withdrawal Asmt-Ciwa ONCE (01/27/18 08:00) Ondansetron Odt (Zofran Odt) (01/27/18 08:00) Acetaminophen (Tylenol) (01/27/18 08:00) Ibuprofen (Motrin) (01/27/18 08:00) Albuterol Neb (Albuterol Neb) (01/27/18 08:00) Flumazenil Inj (Romazicon Inj) (01/27/18 08:00) Lorazepam (Ativan) (01/27/18 08:00) Lorazepam Inj (Ativan Inj) (01/27/18 08:00) Lorazepam (Ativan) (01/27/18 08:00) Lorazepam Inj (Ativan Inj) (01/27/18 08:00) Lorazepam Inj (Ativan Inj) (01/27/18 08:00) Lorazepam Inj (Ativan Inj) (01/27/18 08:00) Sodium Chlor 0.9% 1000 Ml Inj (Ns 1000 M (01/27/18 10:00) Comprehensive Metabolic Panel (01/27/18 10:33) D-Dimer (01/27/18 11:07) Sodium Chlor 0.9% 1000 Ml Inj (Ns 1000 M (01/27/18 12:15) Ct Pulmonary Angiogram (01/27/18 ) Iohexol 350 Inj (Omnipaque 350 Inj) (01/27/18 13:30) Admit Order (Ed Use Only) (01/27/18 14:41) Labs Laboratory Tests Test 01/26/18 23:45 01/27/18 01:35 01/27/18 10:43 01/27/18 12:05 White Blood Count 10.3 TH/MM3 Red Blood Count 5.04 MIL/MM3 Hemoglobin 15.6 GM/DL Hematocrit 44.9 % Mean Corpuscular Volume 89.2 FL Mean Corpuscular Hemoglobin 31.0 PG Mean Corpuscular Hemoglobin Concent 34.7 % Red Cell Distribution Width 14.0 % Platelet Count 172 TH/MM3 Mean Platelet Volume 7.5 FL Neutrophils (%) (Auto) 56.1 % Lymphocytes (%) (Auto) 36.0 % Monocytes (%) (Auto) 6.3 % Eosinophils (%) (Auto) 0.8 % Basophils (%) (Auto) 0.8 % Neutrophils # (Auto) 5.8 TH/MM3 Lymphocytes # (Auto) 3.7 TH/MM3 Monocytes # (Auto) 0.7 TH/MM3 Eosinophils # (Auto) 0.1 TH/MM3 Basophils # (Auto) 0.1 TH/MM3 CBC Comment DIFF FINAL Differential Comment Blood Urea Nitrogen 11 MG/DL 9 MG/DL Creatinine 0.86 MG/DL 0.70 MG/DL Random Glucose 86 MG/DL 89 MG/DL Total Protein 8.0 GM/DL 7.0 GM/DL Albumin 4.5 GM/DL 3.7 GM/DL Calcium Level 8.4 MG/DL 7.7 MG/DL Magnesium Level 1.7 MG/DL Alkaline Phosphatase 103 U/L 90 U/L Aspartate Amino Transf (AST/SGOT) 50 U/L 81 U/L Alanine Aminotransferase (ALT/SGPT) 46 U/L 47 U/L Total Bilirubin 0.4 MG/DL 0.8 MG/DL Sodium Level 136 MEQ/L 124 MEQ/L Potassium Level 3.7 MEQ/L 4.2 MEQ/L Chloride Level 98 MEQ/L 88 MEQ/L Carbon Dioxide Level 21.2 MEQ/L 23.3 MEQ/L Anion Gap 17 MEQ/L 13 MEQ/L Estimat Glomerular Filtration Rate 91 ML/MIN 116 ML/MIN Thyroid Stimulating Hormone 3rd Gen 4.110 uIU/ML Salicylates Level LESS THAN 1.7 MG/DL Acetaminophen Level LESS THAN 2.0 MCG/ML Ethyl Alcohol Level 247 MG/DL Urine Opiates Screen NEG Urine Barbiturates Screen NEG Urine Amphetamines Screen NEG Urine Benzodiazepines Screen NEG Urine Cocaine Screen NEG Urine Cannabinoids Screen NEG D-Dimer Quantitative (PE/DVT) 0.68 MG/L FEU [facility] Medical Record Reviewed: Yes Supervised Visit with MEAGAN: No Interpretation(s) Last Impressions CT Angiography 01/27/18 0000 Signed Impressions: CONCLUSION: 1. There is some limitation due to the opacification of the pulmonary arteries with the contrast bolus. This examination is felt to be diagnostic however. No pulmonary bullae observed. 2. Stable right upper lobe pulmonary granuloma. 3. No acute intrathoracic abnormality. Laboratory Tests Test 01/26/18 23:45 01/27/18 01:35 01/27/18 10:43 01/27/18 12:05 White Blood Count 10.3 TH/MM3 Red Blood Count 5.04 MIL/MM3 Hemoglobin 15.6 GM/DL Hematocrit 44.9 % Mean Corpuscular Volume 89.2 FL Mean Corpuscular Hemoglobin 31.0 PG Mean Corpuscular Hemoglobin Concent 34.7 % Red Cell Distribution Width 14.0 % Platelet Count 172 TH/MM3 Mean Platelet Volume 7.5 FL Neutrophils (%) (Auto) 56.1 % Lymphocytes (%) (Auto) 36.0 % Monocytes (%) (Auto) 6.3 % Eosinophils (%) (Auto) 0.8 % Basophils (%) (Auto) 0.8 % Neutrophils # (Auto) 5.8 TH/MM3 Lymphocytes # (Auto) 3.7 TH/MM3 Monocytes # (Auto) 0.7 TH/MM3 Eosinophils # (Auto) 0.1 TH/MM3 Basophils # (Auto) 0.1 TH/MM3 CBC Comment DIFF FINAL Differential Comment Blood Urea Nitrogen 11 MG/DL 9 MG/DL Creatinine 0.86 MG/DL 0.70 MG/DL Random Glucose 86 MG/DL 89 MG/DL Total Protein 8.0 GM/DL 7.0 GM/DL Albumin 4.5 GM/DL 3.7 GM/DL Calcium Level 8.4 MG/DL 7.7 MG/DL Magnesium Level 1.7 MG/DL Alkaline Phosphatase 103 U/L 90 U/L Aspartate Amino Transf (AST/SGOT) 50 U/L 81 U/L Alanine Aminotransferase (ALT/SGPT) 46 U/L 47 U/L Total Bilirubin 0.4 MG/DL 0.8 MG/DL Sodium Level 136 MEQ/L 124 MEQ/L Potassium Level 3.7 MEQ/L 4.2 MEQ/L Chloride Level 98 MEQ/L 88 MEQ/L Carbon Dioxide Level 21.2 MEQ/L 23.3 MEQ/L Anion Gap 17 MEQ/L 13 MEQ/L Estimat Glomerular Filtration Rate 91 ML/MIN 116 ML/MIN Thyroid Stimulating Hormone 3rd Gen 4.110 uIU/ML Salicylates Level LESS THAN 1.7 MG/DL Acetaminophen Level LESS THAN 2.0 MCG/ML Ethyl Alcohol Level 247 MG/DL Urine Opiates Screen NEG Urine Barbiturates Screen NEG Urine Amphetamines Screen NEG Urine Benzodiazepines Screen NEG Urine Cocaine Screen NEG Urine Cannabinoids Screen NEG D-Dimer Quantitative (PE/DVT) 0.68 MG/L FEU Vital Signs Date Time Temp Pulse Resp B/P (MAP) Pulse Ox O2 Delivery O2 Flow Rate FiO2 01/27/18 14:24 106 17 158/93 (114) 97 Nasal Cannula 2.00 01/27/18 11:10 114 20 173/85 (114) 95 Nasal Cannula 2.00 01/27/18 10:17 112 20 152/102 (119) 96 Nasal Cannula 2.00 01/27/18 09:19 Nasal Cannula 2.00 01/27/18 09:18 113 18 165/88 (113) 91 Room Air 01/27/18 09:01 102 18 164/99 (120) 94 01/27/18 08:59 116 18 01/27/18 08:07 114 20 135/84 (101) 93 Room Air 01/27/18 02:21 110 18 146/75 (98) 95 01/26/18 20:41 98.6 100 16 151/76 (101) 98 Narrative Course Patient is a 49-year-old male that presented to the emergency department from [facility] for detox because due to patient's COPD he was out of their scope of care.. Upon my initial assessment approximately 8 AM patient appeared to be experiencing withdrawals. His alcohol level was 247 at approximately 11 PM last night. Ativan 2 mg IM and Phenergan 25 mg IM ordered. Patient was placed on a CIWA protocol. Nurses were advised to advise if patient continued to appear tremulous, at that time patient may need to be moved out of J pod to a medical bed. Patient was moved to delta pod, he was placed on telemetry monitoring continuous pulse oximetry. [place] protocol was followed, patient remained slightly tachycardic with a rate in the 110s. He also required use of oxygen, his oxygen saturation dropped to 91%. Patient was reassessed, he reported feeling better, he stated he was no longer feeling tremulous. Despite this his oxygen saturation was low and with a tachycardia a d-dimer was obtained, it resulted at 0.68, CT pulmonary angiogram was ordered. I repeated metabolic panel showed a sodium level of 124. Patient was initially given a liter of IV fluids, IV fluids were then ordered at a maintenance rate of [address] pulmonary angiogram was negative for pulmonary embolism. Patient will be placed under observation for alcohol withdrawal, hyponatremia. Diagnosis Primary Impression: COPD Additional Impressions: Chronic alcohol abuse Alcohol withdrawal Qualified Codes: F10.239 - Alcohol dependence with withdrawal, unspecified Delirium tremens Admitting Information Admitting Physician Requests: Observation Condition: Stable Paula Murdock Jan 27, 2018 08:18
[2018-01-27] MEDS ORDERED: LISI10TA3 PO (08:33)
[2018-01-27] MEDS ORDERED: PROT40TA PO (08:35)
[2018-01-27] MEDS ORDERED: CLAR10CA3 PO (08:35)
[2018-01-27] MEDS ORDERED: ROSU20 PO (08:35)
[2018-01-27] MEDS ORDERED: SPIRCAP INH (08:38)
[2018-01-27] MEDS ORDERED: Magnesium PO (08:39)
[2018-01-27] MEDS ORDERED: SODIUM CHLOR 0.9% 1000 ML INJ 1,000 ML IV ONE (10:00)
[2018-01-27 11:46] LABS: ALBUMIN 3.7 GM/DL (3.4-5.0); ALKALINE PHOSPHATASE 90 U/L (45-117); ALT (GPT) 47 U/L (12-78); AST (GOT) 81 U/L (15-37); BICARBONATE 23.3 MEQ/L (21.0-32.0); BLOOD UREA NITROGEN 9 MG/DL (7-18); CALCIUM 7.7 MG/DL (8.5-10.1); CHLORIDE 88 MEQ/L (98-107); GLOMERULAR FILTRATION RATE 116 ML/MIN (>89); GLUCOSE,RANDOM 89 MG/DL (74-106); TOTAL BILIRUBIN ADULT 0.8 MG/DL (0.2-1.0)
[2018-01-27 11:54] LABS: SODIUM (NA) 124 MEQ/L (136-145)
[2018-01-27] MEDS: SODIUM CHLOR 0.9% 1000 ML INJ 1,000 ML IV SCH ×2 (12:29→20:39)
[2018-01-27] MEDS ORDERED: IOHEXOL 350 MG/ML 10 ML VIAL (for RAD DIAG) IVCONTRAST ONE (13:30)
--- NOTE | 2018-01-27 14:21 | RADRPT ---
EXAM DATE: 01/27/2018 1:55 PM EDT AGE/SEX: 57 years / Male INDICATIONS: Shortness of breath. CLINICAL DATA: This is the patient's initial encounter. Patient reports that signs and symptoms have been present for 1 day and indicates a pain score of 0/10. MEDICAL/SURGICAL HISTORY: Chronic obstructive pulmonary disease. Hypertension. None. RADIATION DOSE: 19.88 CTDI (mGy) COMPARISON: [facility] [place]ULMONARY [place]GIOGRAM, 11/09/2017.. CT of the chest 01/07/2016 . TECHNIQUE: Volumetric scanning was performed using a multi-row detector CT scanner during bolus infu bebeto of 75 ml Omnipaque 350 (iohexol) nonionic water-soluble contrast as a single exam dose. The deandra a was post processed with a variety of visualization algorithms including full volume maximum intensi ty projection and sliding thin slab reformation. Using automated exposure control and adjustment of the mA and/or kV according to patient size, radiation dose was kept as low as reasonably achievable t o obtain optimal diagnostic quality images. FINDINGS: Pulmonary Arteries: There is weak opacification of the pulmonary arteries. The majority of the contr ast bolus is within the brachiocephalic and SVC. No filling defects are seen in the pulmonary arterie s out to the subsegmental vessels. The left and right pulmonary arteries are normal in diameter. Lung: Emphysematous changes are noted bilaterally. A right upper lobe granuloma is stable from the p rior studies. No acute infiltrate or effusion. No worrisome nodules or masses. Effusion: None. Mediastinum: No evidence of mediastinal or hilar adenopathy. Other: The axilla is unremarkable. CONCLUSION: 1. There is some limitation due to the opacification of the pulmonary arteries with the contrast deon us. This examination is felt to be diagnostic however. No pulmonary bullae observed. 2. Stable right upper lobe pulmonary granuloma. 3. No acute intrathoracic abnormality. Electronically signed by: Pillo Perla MD 01/27/2018 2:20 PM EDT
--- NOTE | 2018-01-27 14:59 | HHI.HP ---
HPI Service [facility] Hospitalists Primary Care Physician Dr. Zafar Garnica Admission Diagnosis ETOH withdrawal, hyponatremia, tachycardia Chief Complaint: EtOH withdrawal Travel History International Travel<30 Days: No Contact w/Intl Traveler <30 Da: No Traveled to Known Affected Are: No History of Present Illness Mr. Brody is a pleasant 57 y/o WM with COPD, HTN, Hyperlipidemia, tobacco abuse and alcohol abuse. He went to [facility] on a voluntary basis for alcohol detox but was reportedly transferred to the ED on 01/26/18 for depression and suicidal ideation and pt was SOB which is apparently chronic. His alcohol level in the ED was 247. He was seen by Psychiatry in the ED and was recommended ambulatory chemical dependency evaluation and treatment upon discharge. Pt has been drinking 1-2 bottles of wine per day and occasional beer for the last 1-2 weeks. Prior to that he had been sober for 2 months and going to regular AA meetings. He has been drinking 1-2 bottles of wine per day and has been a daily heavy drinker since he was a teenager. He reports that he has gone through alcohol withdrawal previously when he was admitted in October 2017. He denies any hx of withdrawal seizures. In the ED pt continued to have some SOB and tachycardia and was reportedly tremulous. Pt was given Ativan 2 mg IM and Phenergan 25 mg IM and placed on a CIWA protocol. Patient remained slightly tachycardic with a rate in the 110s and required use of supplemental O2 as his oxygen saturation dropped to 91%. A D-dimer was checked in the ED and was elevated at 0.68. CT pulmonary angiogram was ordered which was negative. Metabolic panel showed a sodium level of 124. Patient was initially given a liter of IV fluids, IV fluids were then ordered at a maintenance rate of 100 mL an hour. Patient is being admitted for observation for alcohol withdrawal, hyponatremia, and hypoxia. Review of Systems Constitutional: DENIES: Fever, Chills, Dizziness Ears, nose, mouth, throat: DENIES: Nasal discharge, Running Nose Respiratory: COMPLAINS OF: Shortness of breath (chronic), DENIES: Cough, Wheezing Cardiovascular: COMPLAINS OF: Dyspnea on Exertion, DENIES: Chest pain, Lower Extremity Edema Gastrointestinal: DENIES: Abdominal pain, Diarrhea, Nausea, Vomiting Genitourinary: DENIES: Hematuria, Dysuria Musculoskeletal: COMPLAINS OF: Back pain (chronic) Integumentary: DENIES: Rash Neurologic: DENIES: Headache Psychiatric: DENIES: Confusion, Hallucinations, Agitation Past Family Social History Past Medical History COPD Chronic back pain EtOH abuse Tobacco abuse HTN Hyperlipidemia Past Surgical History Lumbar spine surgery, laminectomy and fusion, x 2 different procedures Elbow surgery, 8 surgeries to repair fracture with hardware placement Reported Medications -Ventolin Hfa 18 GM Inh (Albuterol Sulfate) 90 Mcg/Act Aer 2 Puff INH Q4H PRN -Nebulized Albuterol BID -Spiriva Handihaler (Tiotropium Inh) 18 Mcg Cap 18 Mcg INH DAILY 1 capsule = 18 mcg -Crestor 20 Mg PO DAILY -Claritin 10 Mg PO DAILY -Protonix 40 Mg PO DAILY -K-Phos 1,000 Mg PO Q12HR -Magnesium 400 Mg PO DIRECTED -Aspirin EC (Aspirin) 81 Mg Tabdr 81 Mg PO DAILY -Lisinopril 10 Mg PO DAILY Allergies: Coded Allergies: No Known Allergies (Unverified , 01/26/18) Family History Unknown as pt is adopted Social History Hx of tobacco use, quit smoking 7 years ago, smoked 1-2 ppd for 30+ years Heavy, daily alcohol use, 1-2 bottles of wine per day for 30+ years Denies any illicit drug use The patient lives with his . He has no children. He is unemployed. He does have a history of DUI but reports no other legal history Physical Exam Vital Signs Vital Signs Date Time Temp Pulse Resp B/P (MAP) Pulse Ox O2 Delivery O2 Flow Rate FiO2 01/27/18 14:24 106 17 158/93 (114) 97 Nasal Cannula 2.00 01/27/18 11:10 114 20 173/85 (114) 95 Nasal Cannula 2.00 01/27/18 10:17 112 20 152/102 (119) 96 Nasal Cannula 2.00 01/27/18 09:19 Nasal Cannula 2.00 01/27/18 09:18 113 18 165/88 (113) 91 Room Air 01/27/18 09:01 102 18 164/99 (120) 94 01/27/18 08:59 116 18 01/27/18 08:07 114 20 135/84 (101) 93 Room Air 01/27/18 02:21 110 18 146/75 (98) 95 01/26/18 20:41 98.6 100 16 151/76 (101) 98 Physical Exam GENERAL: This is a well-nourished, well-developed patient, in no apparent distress. SKIN: No rashes, ecchymoses or lesions. Cool and dry. HEENT: Atraumatic. Normocephalic. No temporal or scalp tenderness. No scleral icterus. Airway patent. NECK: Trachea midline, supple, nontender. CARDIO: Regular. RESP: Slight inspiratory wheeze bilaterally. ABD: +BS, soft, non-tender, nondistended. EXT: Extremities without clubbing, cyanosis, or edema. NEURO: Awake and alert. Motor and sensory grossly within normal limits. Normal speech. Laboratory Laboratory Tests Test 01/26/18 23:45 01/27/18 01:35 01/27/18 10:43 01/27/18 12:05 White Blood Count 10.3 Red Blood Count 5.04 Hemoglobin 15.6 Hematocrit 44.9 Mean Corpuscular Volume 89.2 Mean Corpuscular Hemoglobin 31.0 Mean Corpuscular Hemoglobin Concent 34.7 Red Cell Distribution Width 14.0 Platelet Count 172 Mean Platelet Volume 7.5 Neutrophils (%) (Auto) 56.1 Lymphocytes (%) (Auto) 36.0 Monocytes (%) (Auto) 6.3 Eosinophils (%) (Auto) 0.8 Basophils (%) (Auto) 0.8 Neutrophils # (Auto) 5.8 Lymphocytes # (Auto) 3.7 Monocytes # (Auto) 0.7 Eosinophils # (Auto) 0.1 Basophils # (Auto) 0.1 CBC Comment DIFF FINAL Differential Comment Blood Urea Nitrogen 11 9 Creatinine 0.86 0.70 Random Glucose 86 89 Total Protein 8.0 7.0 Albumin 4.5 3.7 Calcium Level 8.4 7.7 Magnesium Level 1.7 Alkaline Phosphatase 103 90 Aspartate Amino Transf (AST/SGOT) 50 81 Alanine Aminotransferase (ALT/SGPT) 46 47 Total Bilirubin 0.4 0.8 Sodium Level 136 124 Potassium Level 3.7 4.2 Chloride Level 98 88 Carbon Dioxide Level 21.2 23.3 Anion Gap 17 13 Estimat Glomerular Filtration Rate 91 116 Thyroid Stimulating Hormone 3rd Gen 4.110 Salicylates Level LESS THAN 1.7 Acetaminophen Level LESS THAN 2.0 Ethyl Alcohol Level 247 Urine Opiates Screen NEG Urine Barbiturates Screen NEG Urine Amphetamines Screen NEG Urine Benzodiazepines Screen NEG Urine Cocaine Screen NEG Urine Cannabinoids Screen NEG D-Dimer Quantitative (PE/DVT) 0.68 Result Diagram: 01/26/18 2345 01/27/[address] Angiography 01/27/18 0000 Signed Impressions: CONCLUSION: 1. There is some limitation due to the opacification of the pulmonary arteries with the contrast bolus. This examination is felt to be diagnostic however. No pulmonary bullae observed. 2. Stable right upper lobe pulmonary granuloma. 3. No acute intrathoracic abnormality. Caprini VTE Risk Assessment Caprini VTE Risk Assessment: Mod/High Risk (score >= 2) Caprini Risk Assessment Model Point Value = 1 Point Value = 2 Point Value = 3 Point Value = 5 Age 41-60 Minor surgery BMI > 25 kg/m2 Swollen legs Varicose veins or History of unexplained or recurrent spontaneous Oral contraceptives or hormone replacement Sepsis (< 1 month) Serious lung disease, including pneumonia (< 1 month) Abnormal pulmonary function Acute myocardial infarction Congestive heart failure (< 1 month) History of inflammatory bowel disease Medical patient at bed rest Age 61-74 Arthroscopic surgery Major open surgery (> 45 min) Laparoscopic surgery (> 45 min) Malignancy Confined to bed (> 72 hours) Immobilizing plaster cast Central venous access Age >= 75 History of VTE Family history of VTE Factor V Leiden Prothrombin [id number] Lupus anticoagulant Anticardiolipin antibodies Elevated serum homocysteine Heparin-induced thrombocytopenia Other congenital or acquired thrombophilia Stroke (< 1 month) Elective arthroplasty Hip, pelvis, or leg fracture Acute spinal cord injury (< 1 month) Prophylaxis Regimen Total Risk Factor Score Risk Level Prophylaxis Regimen 0-1 Low Early ambulation 2 Moderate Order ONE of the following: *Sequential Compression Device (SCD) *Heparin 5000 units SQ BID 3-4 Higher Order ONE of the following medications: *Heparin 5000 units SQ TID *Enoxaparin/Lovenox 40 mg SQ daily (WT < 150 kg, CrCl > 30 mL/min) *Enoxaparin/Lovenox 30 mg SQ daily (WT < 150 kg, CrCl > 10-29 mL/min) *Enoxaparin/Lovenox 30 mg SQ BID (WT < 150 kg, CrCl > 30 mL/min) AND/OR *Sequential Compression Device (SCD) 5 or more Highest Order ONE of the following medications: *Heparin 5000 units SQ TID (Preferred with Epidurals) *Enoxaparin/Lovenox 40 mg SQ daily (WT < 150 kg, CrCl > 30 mL/min) *Enoxaparin/Lovenox 30 mg SQ daily (WT < 150 kg, CrCl > 10-29 mL/min) *Enoxaparin/Lovenox 30 mg SQ BID (WT < 150 kg, CrCl > 30 mL/min) AND *Sequential Compression Device (SCD) Assessment and Plan Problem List: (1) Alcohol withdrawal ICD Codes: F10.239 - Alcohol dependence with withdrawal, unspecified Plan: Alcohol withdrawal Hyponatremia Alcohol abuse Tachycardia - Pt is a 57 y/o WM with COPD, HTN, Hyperlipidemia, tobacco abuse and alcohol abuse. He went to [facility] on a voluntary basis for alcohol detox but was reportedly transferred to the ED on 01/26/18 due to his hx of COPD which was reportedly "out of their scope of practice" and pt was SOB which is apparently chronic. His alcohol level in the ED was 247. He was seen by Psychiatry in the ED and was recommended ambulatory chemical dependency evaluation and treatment upon discharge. Pt has been drinking 1-2 bottles of wine per day and occasional beer for the last 1-2 weeks. Prior to that he had been sober for 2 months and going to regular AA meetings. He has been drinking 1-2 bottles of wine per day and has been a daily heavy drinker since he was a teenager. He reports that he has gone through alcohol withdrawal previously when he was admitted in October 2017. He denies any hx of withdrawal seizures. In the ED pt continued to have some SOB and tachycardia and was reportedly tremulous. - Pt was given Ativan 2 mg IM and Phenergan 25 mg IM in the ED and placed on a CIWA protocol. - Start Librium 20mg QID - Ativan PRN per CIWA protocol - Repeat BMP this afternoon - Pt is being given IVF hydration - Repeat labs in AM - Diet as tolerated - Supportive care COPD Hypoxia - Cont. supplemental O2 as needed - A D-dimer was checked in the ED and was elevated at 0.68. - CT pulmonary angiogram was ordered which was negative. - Duonebs Q6H WA and Q2H PRN Albuterol nebs - Cont. home Spiriva HTN - Home home dose of Lisinopril Hyperlipidemia - Home home Crestor GERD - PPI - DVT prophylaxis with SCDs (2) Hyponatremia ICD Codes: E87.1 - Hypo-osmolality and hyponatremia (3) COPD (chronic obstructive pulmonary disease) ICD Codes: J44.9 - Chronic obstructive pulmonary disease, unspecified (4) HTN (hypertension) ICD Codes: I10 - Essential (primary) hypertension (5) Hyperlipemia ICD Codes: E78.5 - Hyperlipidemia, unspecified (6) Delirium tremens ICD Codes: F10.231 - Alcohol dependence with withdrawal delirium Status: Acute Problem Qualifiers (1) Alcohol withdrawal: Qualified Codes: F10.239 - Alcohol dependence with withdrawal, unspecified Zuleima Sr Jan 27, 2018 14:58
[2018-01-27] MEDS: RESP: ALBUTEROL 2.5 MG/IPRATROPIUM 0.5 MG NEB (SCH) NEB ×2 (15:44→19:23)
[2018-01-27 16:09] LABS: BICARBONATE 24.7 MEQ/L (21.0-32.0); CALCIUM 7.5 MG/DL (8.5-10.1); CREATININE 0.69 MG/DL (0.60-1.30)
[2018-01-27] MEDS: ACETAMINOPHEN 325 MG TAB PO PRN (20:45)
[2018-01-28] VITALS (10 sets, daily range): BP systolic 122–142; BP diastolic 62–83; PULSE 83–107; RESP 16–20; TEMP 97.8–98.2; O2SAT 93–97
[2018-01-28] MEDS: SODIUM CHLOR 0.9% 1000 ML INJ 1,000 ML IV SCH (06:51)
[2018-01-28] MEDS: ACETAMINOPHEN 325 MG TAB PO PRN (06:52)
[2018-01-28] MEDS: RESP: ALBUTEROL 2.5 MG/IPRATROPIUM 0.5 MG NEB (SCH) NEB ×3 (07:41→19:58)
[2018-01-28 07:49] LABS: AUTOMATED NEUTROPHIL # 3.2 TH/MM3 (1.8-7.7); BASOPHIL % 0.8 % (0.0-2.0); EOSINOPHIL # 0.1 TH/MM3 (0-0.4); EOSINOPHIL % 1.1 % (0.0-4.0); HEMATOCRIT 42.7 % (39.0-51.0); HEMOGLOBIN 14.2 GM/DL (13.0-17.0); LYMPH % 28.3 % (9.0-44.0); LYMPHOCYTE # 1.6 TH/MM3 (1.0-4.8); MEAN CELL VOLUME 90.5 FL (80.0-100.0); MEAN CORPUSCULAR HEMOGLOBIN 30.2 PG (27.0-34.0); MEAN CORPUSCULAR HGB CONC 33.3 % (32.0-36.0); MEAN PLATELET VOLUME 8.2 FL (7.0-11.0); MONO % 12.7 % (0.0-8.0); MONOCYTE # 0.7 TH/MM3 (0-0.9); NEUT % 57.1 % (16.0-70.0); PLATELET COUNT 153 TH/MM3 (150-450); RED BLOOD COUNT 4.71 MIL/MM3 (4.50-5.90); WHITE BLOOD COUNT 5.6 TH/MM3 (4.0-11.0)
[2018-01-28 08:25] LABS: CALCIUM 8.5 MG/DL (8.5-10.1); CREATININE 0.73 MG/DL (0.60-1.30); MAGNESIUM 1.8 MG/DL (1.5-2.5)
[2018-01-28] MEDS: IBUPROFEN 600 MG TAB PO PRN ×2 (09:20→18:51)
[2018-01-28] MEDS: TIOTROPIUM BROMIDE 18 MCG INH INH SCH (09:21)
[2018-01-28] MEDS: LORATADINE 10 MG TAB PO SCH (09:21)
[2018-01-28] MEDS: ASPIRIN EC 81 MG TABEC PO SCH (09:21)
[2018-01-28] MEDS: ATORVASTATIN 40 MG TAB PO SCH (09:22)
[2018-01-28] MEDS: LISINOPRIL 10 MG TAB PO SCH (09:22)
[2018-01-28] MEDS: PANTOPRAZOLE SOD 40 MG DELAYED RELEASE TAB PO SCH (09:22)
--- NOTE | 2018-01-28 09:22 | HHI.PR ---
Subjective Remarks Pt reports that he feels "terrible" this morning. He feels more tremulous and has a headache. His breathing is better and is saturating well on room air. Pt denies any nausea/vomiting. He is tolerating oral intake. Objective Vitals Vital Signs Date Time Temp Pulse Resp B/P (MAP) Pulse Ox O2 Delivery O2 Flow Rate FiO2 01/28/18 08:00 98.2 100 20 137/83 (101) 93 01/28/18 07:43 97 21 01/28/18 07:42 97.8 83 18 142/63 (89) 97 01/28/18 00:00 101 01/27/18 23:56 98.6 97 17 130/71 (90) 93 01/27/18 20:00 120 01/27/18 19:42 122 18 162/71 (101) 94 01/27/18 19:25 95 21 01/27/18 18:00 111 01/27/18 16:45 98.2 122 22 155/73 (100) 92 01/27/18 15:51 118 20 153/93 (113) 97 Nasal Cannula 2.00 01/27/18 15:45 98 Nasal Cannula 2.00 01/27/18 14:24 106 17 158/93 (114) 97 Nasal Cannula 2.00 01/27/18 11:10 114 20 173/85 (114) 95 Nasal Cannula 2.00 01/27/18 10:17 112 20 152/102 (119) 96 Nasal Cannula 2.00 01/27/18 09:19 Nasal Cannula 2.00 Result Diagram: 01/28/18 0550 01/28/18 0550 Other Results Laboratory Tests Test 01/26/18 23:45 01/27/18 01:35 01/27/18 10:43 01/27/18 12:05 White Blood Count 10.3 TH/MM3 Red Blood Count 5.04 MIL/MM3 Hemoglobin 15.6 GM/DL Hematocrit 44.9 % Mean Corpuscular Volume 89.2 FL Mean Corpuscular Hemoglobin 31.0 PG Mean Corpuscular Hemoglobin Concent 34.7 % Red Cell Distribution Width 14.0 % Platelet Count 172 TH/MM3 Mean Platelet Volume 7.5 FL Neutrophils (%) (Auto) 56.1 % Lymphocytes (%) (Auto) 36.0 % Monocytes (%) (Auto) 6.3 % Eosinophils (%) (Auto) 0.8 % Basophils (%) (Auto) 0.8 % Neutrophils # (Auto) 5.8 TH/MM3 Lymphocytes # (Auto) 3.7 TH/MM3 Monocytes # (Auto) 0.7 TH/MM3 Eosinophils # (Auto) 0.1 TH/MM3 Basophils # (Auto) 0.1 TH/MM3 CBC Comment DIFF FINAL Differential Comment Blood Urea Nitrogen 11 MG/DL 9 MG/DL Creatinine 0.86 MG/DL 0.70 MG/DL Random Glucose 86 MG/DL 89 MG/DL Total Protein 8.0 GM/DL 7.0 GM/DL Albumin 4.5 GM/DL 3.7 GM/DL Calcium Level 8.4 MG/DL 7.7 MG/DL Magnesium Level 1.7 MG/DL Alkaline Phosphatase 103 U/L 90 U/L Aspartate Amino Transf (AST/SGOT) 50 U/L 81 U/L Alanine Aminotransferase (ALT/SGPT) 46 U/L 47 U/L Total Bilirubin 0.4 MG/DL 0.8 MG/DL Sodium Level 136 MEQ/L 124 MEQ/L Potassium Level 3.7 MEQ/L 4.2 MEQ/L Chloride Level 98 MEQ/L 88 MEQ/L Carbon Dioxide Level 21.2 MEQ/L 23.3 MEQ/L Anion Gap 17 MEQ/L 13 MEQ/L Estimat Glomerular Filtration Rate 91 ML/MIN 116 ML/MIN Thyroid Stimulating Hormone 3rd Gen 4.110 uIU/ML Salicylates Level LESS THAN 1.7 MG/DL Acetaminophen Level LESS THAN 2.0 MCG/ML Ethyl Alcohol Level 247 MG/DL Urine Opiates Screen NEG Urine Barbiturates Screen NEG Urine Amphetamines Screen NEG Urine Benzodiazepines Screen NEG Urine Cocaine Screen NEG Urine Cannabinoids Screen NEG D-Dimer Quantitative (PE/DVT) 0.68 MG/L FEU Test 01/27/18 15:08 01/28/18 05:50 Blood Urea Nitrogen 8 MG/DL 8 MG/DL Creatinine 0.69 MG/DL 0.73 MG/DL Random Glucose 86 MG/DL 99 MG/DL Calcium Level 7.5 MG/DL 8.5 MG/DL Sodium Level 131 MEQ/L 140 MEQ/L Potassium Level 3.8 MEQ/L 3.8 MEQ/L Chloride Level 95 MEQ/L 105 MEQ/L Carbon Dioxide Level 24.7 MEQ/L 25.0 MEQ/L Anion Gap 11 MEQ/L 10 MEQ/L Estimat Glomerular Filtration Rate 118 ML/MIN 110 ML/MIN White Blood Count 5.6 TH/MM3 Red Blood Count 4.71 MIL/MM3 Hemoglobin 14.2 GM/DL Hematocrit 42.7 % Mean Corpuscular Volume 90.5 FL Mean Corpuscular Hemoglobin 30.2 PG Mean Corpuscular Hemoglobin Concent 33.3 % Red Cell Distribution Width 14.0 % Platelet Count 153 TH/MM3 Mean Platelet Volume 8.2 FL Neutrophils (%) (Auto) 57.1 % Lymphocytes (%) (Auto) 28.3 % Monocytes (%) (Auto) 12.7 % Eosinophils (%) (Auto) 1.1 % Basophils (%) (Auto) 0.8 % Neutrophils # (Auto) 3.2 TH/MM3 Lymphocytes # (Auto) 1.6 TH/MM3 Monocytes # (Auto) 0.7 TH/MM3 Eosinophils # (Auto) 0.1 TH/MM3 Basophils # (Auto) 0.0 TH/MM3 CBC Comment DIFF FINAL Differential Comment Magnesium Level 1.8 MG/DL Imaging Last Impressions CT Angiography 01/27/18 0000 Signed Impressions: CONCLUSION: 1. There is some limitation due to the opacification of the pulmonary arteries with the contrast bolus. This examination is felt to be diagnostic however. No pulmonary bullae observed. 2. Stable right upper lobe pulmonary granuloma. 3. No acute intrathoracic abnormality. Objective Remarks General: NAD, AAox3 Chest: CTA Cardiac: Regular Abd: +BS, soft ND/NT Ext: No edema A/P Problem List: (1) Alcohol withdrawal ICD Codes: F10.239 - Alcohol dependence with withdrawal, unspecified Plan: Alcohol withdrawal Hyponatremia Alcohol abuse Tachycardia - Pt is a 57 y/o WM with COPD, HTN, Hyperlipidemia, tobacco abuse and alcohol abuse. He went to [facility] on a voluntary basis for alcohol detox but was reportedly transferred to the ED on 01/26/18 due to his hx of COPD which was reportedly "out of their scope of practice" and pt was SOB which is apparently chronic. His alcohol level in the ED was 247. He was seen by Psychiatry in the ED and was recommended ambulatory chemical dependency evaluation and treatment upon discharge. Pt has been drinking 1-2 bottles of wine per day and occasional beer for the last 1-2 weeks. Prior to that he had been sober for 2 months and going to regular AA meetings. He has been drinking 1-2 bottles of wine per day and has been a daily heavy drinker since he was a teenager. He reports that he has gone through alcohol withdrawal previously when he was admitted in October 2017. He denies any hx of withdrawal seizures. In the ED pt continued to have some SOB and tachycardia and was reportedly tremulous. - Pt was given Ativan 2 mg IM and Phenergan 25 mg IM in the ED and placed on a CIWA protocol. - Pt was started on Librium 20mg QID at admission. - Ativan PRN per CIID protocol - Repeat BMP on 01/27 in the afternoon with improvement in his Na+ to 131 - Pt was given IVF hydration - Repeat labs on 01/28 with Na+ improved to 140. - Stop IVF this morning - Encourage oral intake. - Supportive care COPD Hypoxia - A D-dimer was checked in the ED and was elevated at 0.68. - CT pulmonary angiogram was ordered which was negative. - Duonebs Q6H WA and Q2H PRN Albuterol nebs - Cont. home Spiriva - Pt able to be weaned off supplemental O2 HTN - Home home dose of Lisinopril Hyperlipidemia - Home home Crestor GERD - PPI - DVT prophylaxis with SCDs (2) Hyponatremia ICD Codes: E87.1 - Hypo-osmolality and hyponatremia (3) COPD (chronic obstructive pulmonary disease) ICD Codes: J44.9 - Chronic obstructive pulmonary disease, unspecified (4) HTN (hypertension) ICD Codes: I10 - Essential (primary) hypertension (5) Hyperlipemia ICD Codes: E78.5 - Hyperlipidemia, unspecified (6) Delirium tremens ICD Codes: F10.231 - Alcohol dependence with withdrawal delirium Status: Acute Assessment and Plan Patient examined. Assessment and plan formulated with Zuleima Sr PA-C. I agree with the above. etoh w/d. cont librium and prn ativan. Problem Qualifiers (1) Alcohol withdrawal: Qualified Codes: F10.239 - Alcohol dependence with withdrawal, unspecified Zuleima Sr Jan 28, 2018 09:22 Phoenix Montaño MD Jan 28, 2018 14:45
[2018-01-28] MEDS ORDERED: ACETAMINOPHEN 1000 MG/100 ML VIAL IV ONE (12:45)
[2018-01-28] MEDS ORDERED: cloNIDine HCL 0.1 MG TAB PO PRN (12:45)
[2018-01-29] VITALS (9 sets, daily range): BP systolic 114–137; BP diastolic 62–86; PULSE 82–111; RESP 16–19; TEMP 96.5–97.8; O2SAT 93–96
[2018-01-29] MEDS: RESP: ALBUTEROL 2.5 MG/IPRATROPIUM 0.5 MG NEB (SCH) NEB ×3 (07:36→20:18)
[2018-01-29] MEDS ORDERED: ACETAMINOPHEN 1000 MG/100 ML VIAL IV ONE (08:15)
[2018-01-29] MEDS ORDERED: ACETAMINOPHEN 1000 MG/100 ML 100 ML IV ONE (08:30)
[2018-01-29] MEDS: ASPIRIN EC 81 MG TABEC PO SCH (09:04)
[2018-01-29] MEDS: PANTOPRAZOLE SOD 40 MG DELAYED RELEASE TAB PO SCH (09:04)
[2018-01-29] MEDS: ATORVASTATIN 40 MG TAB PO SCH (09:04)
[2018-01-29] MEDS: LISINOPRIL 10 MG TAB PO SCH (09:04)
[2018-01-29] MEDS: LORATADINE 10 MG TAB PO SCH (09:04)
[2018-01-29] MEDS: TIOTROPIUM BROMIDE 18 MCG INH INH SCH (09:05)
--- NOTE | 2018-01-29 09:20 | HHI.PR ---
Subjective Remarks Pt still complains of a headache and generalized pain He still feels shaky today and states that he feels worse today than yesterday He reports that he was supposed to go to [facility] in [place] upon discharge for continued alcohol rehab Objective Vitals Vital Signs Date Time Temp Pulse Resp B/P (MAP) Pulse Ox O2 Delivery O2 Flow Rate FiO2 01/29/18 07:39 96 21 01/29/18 07:27 97.8 92 18 137/86 (103) 93 01/29/18 04:01 97.8 95 16 135/73 (93) 95 01/28/18 23:20 97.8 93 16 122/69 (86) 95 01/28/18 20:16 98.0 100 18 125/71 (89) 95 01/28/18 19:56 21 01/28/18 15:51 97.8 107 20 123/62 (82) 94 01/28/18 15:10 102 01/28/18 12:00 97.9 94 18 139/73 (95) 94 Result Diagram: 01/28/18 0550 01/28/18 0550 Other Results Laboratory Tests Test 01/27/18 10:43 01/27/18 12:05 01/27/18 15:08 01/28/18 05:50 Blood Urea Nitrogen 9 MG/DL 8 MG/DL 8 MG/DL Creatinine 0.70 MG/DL 0.69 MG/DL 0.73 MG/DL Random Glucose 89 MG/DL 86 MG/DL 99 MG/DL Total Protein 7.0 GM/DL Albumin 3.7 GM/DL Calcium Level 7.7 MG/DL 7.5 MG/DL 8.5 MG/DL Alkaline Phosphatase 90 U/L Aspartate Amino Transf (AST/SGOT) 81 U/L Alanine Aminotransferase (ALT/SGPT) 47 U/L Total Bilirubin 0.8 MG/DL Sodium Level 124 MEQ/L 131 MEQ/L 140 MEQ/L Potassium Level 4.2 MEQ/L 3.8 MEQ/L 3.8 MEQ/L Chloride Level 88 MEQ/L 95 MEQ/L 105 MEQ/L Carbon Dioxide Level 23.3 MEQ/L 24.7 MEQ/L 25.0 MEQ/L Anion Gap 13 MEQ/L 11 MEQ/L 10 MEQ/L Estimat Glomerular Filtration Rate 116 ML/MIN 118 ML/MIN 110 ML/MIN D-Dimer Quantitative (PE/DVT) 0.68 MG/L FEU White Blood Count 5.6 TH/MM3 Red Blood Count 4.71 MIL/MM3 Hemoglobin 14.2 GM/DL Hematocrit 42.7 % Mean Corpuscular Volume 90.5 FL Mean Corpuscular Hemoglobin 30.2 PG Mean Corpuscular Hemoglobin Concent 33.3 % Red Cell Distribution Width 14.0 % Platelet Count 153 TH/MM3 Mean Platelet Volume 8.2 FL Neutrophils (%) (Auto) 57.1 % Lymphocytes (%) (Auto) 28.3 % Monocytes (%) (Auto) 12.7 % Eosinophils (%) (Auto) 1.1 % Basophils (%) (Auto) 0.8 % Neutrophils # (Auto) 3.2 TH/MM3 Lymphocytes # (Auto) 1.6 TH/MM3 Monocytes # (Auto) 0.7 TH/MM3 Eosinophils # (Auto) 0.1 TH/MM3 Basophils # (Auto) 0.0 TH/MM3 CBC Comment DIFF FINAL Differential Comment Magnesium Level 1.8 MG/DL Imaging Last Impressions CT Angiography 01/27/18 0000 Signed Impressions: CONCLUSION: 1. There is some limitation due to the opacification of the pulmonary arteries with the contrast bolus. This examination is felt to be diagnostic however. No pulmonary bullae observed. 2. Stable right upper lobe pulmonary granuloma. 3. No acute intrathoracic abnormality. Objective Remarks General: NAD, AAox3 Chest: CTA Cardiac: Regular Abd: +BS, soft ND/NT Ext: No edema A/P Problem List: (1) Alcohol withdrawal ICD Codes: F10.239 - Alcohol dependence with withdrawal, unspecified Plan: Alcohol withdrawal Hyponatremia Alcohol abuse Tachycardia - Pt is a 57 y/o WM with COPD, HTN, Hyperlipidemia, tobacco abuse and alcohol abuse. He went to [facility] on a voluntary basis for alcohol detox but was reportedly transferred to the ED on 01/26/18 due to his hx of COPD which was reportedly "out of their scope of practice" and pt was SOB which is apparently chronic. His alcohol level in the ED was 247. He was seen by Psychiatry in the ED and was recommended ambulatory chemical dependency evaluation and treatment upon discharge. Pt has been drinking 1-2 bottles of wine per day and occasional beer for the last 1-2 weeks. Prior to that he had been sober for 2 months and going to regular AA meetings. He has been drinking 1-2 bottles of wine per day and has been a daily heavy drinker since he was a teenager. He reports that he has gone through alcohol withdrawal previously when he was admitted in October 2017. He denies any hx of withdrawal seizures. In the ED pt continued to have some SOB and tachycardia and was reportedly tremulous. - Pt was given Ativan 2 mg IM and Phenergan 25 mg IM in the ED and placed on a CIWA protocol. - Pt was started on Librium 20mg QID at admission. - Ativan PRN per [facility] protocol - Repeat BMP on 01/27 in the afternoon with improvement in his Na+ to 131 - Pt was given IVF hydration - Repeat labs on 01/28 with Na+ improved to 140. - IVF stopped on 01/28 - Encourage oral intake. - Supportive care - Consult CM to help with making arrangements for continued alcohol detox/rehab facility placement. COPD Hypoxia - A D-dimer was checked in the ED and was elevated at 0.68. - CT pulmonary angiogram was ordered which was negative. - Duonebs Q6H WA and Q2H PRN Albuterol nebs - Cont. home Spiriva - Pt able to be weaned off supplemental O2 HTN - Home home dose of Lisinopril Hyperlipidemia - Home home Crestor GERD - PPI - DVT prophylaxis with SCDs (2) Hyponatremia ICD Codes: E87.1 - Hypo-osmolality and hyponatremia (3) COPD (chronic obstructive pulmonary disease) ICD Codes: J44.9 - Chronic obstructive pulmonary disease, unspecified (4) HTN (hypertension) ICD Codes: I10 - Essential (primary) hypertension (5) Hyperlipemia ICD Codes: E78.5 - Hyperlipidemia, unspecified (6) Delirium tremens ICD Codes: F10.231 - Alcohol dependence with withdrawal delirium Status: Acute Assessment and Plan Patient examined. Assessment and plan formulated with Zuleima Sr PA-C. I agree with the above. etoh w/d. cont librium and prn ativan. lower librium plan for dc tomorrow and pt go to [facility] Problem Qualifiers (1) Alcohol withdrawal: Qualified Codes: F10.239 - Alcohol dependence with withdrawal, unspecified Zuleima Sr Jan 29, 2018 09:20 Phoenix Montaño MD Jan 29, 2018 15:35
[2018-01-29] MEDS ORDERED: ACETAMINOPHEN 1000 MG/100 ML VIAL IV PRN (15:15)
[2018-01-29] MEDS ORDERED: ACETAMINOPHEN 1000 MG/100 ML 100 ML IV PRN (16:00)
[2018-01-29] MEDS: IBUPROFEN 600 MG TAB PO PRN (22:16)
[2018-01-30] VITALS: BP 122/75; PULSE 92; RESP 18; TEMP 97.5; O2SAT 97
[2018-01-30 04:00] VITALS: BP 109/56; PULSE 83; RESP 17; TEMP 97.3; O2SAT 97
[2018-01-30] MEDS: ACETAMINOPHEN 325 MG TAB PO PRN (05:01)
[2018-01-30 08:09] LABS: AUTOMATED NEUTROPHIL # 2.4 TH/MM3 (1.8-7.7); BASOPHIL % 0.7 % (0.0-2.0); EOSINOPHIL # 0.3 TH/MM3 (0-0.4); EOSINOPHIL % 4.4 % (0.0-4.0); HEMATOCRIT 48.3 % (39.0-51.0); HEMOGLOBIN 16.1 GM/DL (13.0-17.0); LYMPH % 48.6 % (9.0-44.0); LYMPHOCYTE # 3.2 TH/MM3 (1.0-4.8); MEAN CORPUSCULAR HEMOGLOBIN 30.4 PG (27.0-34.0); MEAN CORPUSCULAR HGB CONC 33.4 % (32.0-36.0); MONO % 8.9 % (0.0-8.0); MONOCYTE # 0.6 TH/MM3 (0-0.9); NEUT % 37.4 % (16.0-70.0); PLATELET COUNT 160 TH/MM3 (150-450); RED BLOOD COUNT 5.31 MIL/MM3 (4.50-5.90); RED CELL DISTRIBUTION WIDTH 14.1 % (11.6-17.2); WHITE BLOOD COUNT 6.5 TH/MM3 (4.0-11.0)
[2018-01-30] MEDS: LORATADINE 10 MG TAB PO SCH (08:10)
[2018-01-30] MEDS: ASPIRIN EC 81 MG TABEC PO SCH (08:10)
[2018-01-30] MEDS: LISINOPRIL 10 MG TAB PO SCH (08:10)
[2018-01-30] MEDS: ATORVASTATIN 40 MG TAB PO SCH (08:10)
[2018-01-30] MEDS: TIOTROPIUM BROMIDE 18 MCG INH INH SCH (08:11)
[2018-01-30] MEDS: PANTOPRAZOLE SOD 40 MG DELAYED RELEASE TAB PO SCH (08:11)
[2018-01-30] MEDS: RESP: ALBUTEROL 2.5 MG/IPRATROPIUM 0.5 MG NEB (SCH) NEB (08:15)
[2018-01-30 08:40] VITALS: BP 112/71; PULSE 99; RESP 18; TEMP 97.3; O2SAT 95
[2018-01-30 08:43] LABS: CREATININE 0.94 MG/DL (0.60-1.30); MAGNESIUM 1.4 MG/DL (1.5-2.5)
--- NOTE | 2018-01-30 10:37 | HHI.DS ---
Discharge Summary Admission Date Jan 28, 2018 at 14:41 Discharge Date: Jan 30, 2018 Admitting Diagnosis ETOH withdrawal, hyponatremia, tachycardia (1) Alcohol withdrawal Diagnosis: Principal ICD Codes: F10.239 - Alcohol dependence with withdrawal, unspecified (2) Hyponatremia Diagnosis: Principal ICD Codes: E87.1 - Hypo-osmolality and hyponatremia (3) COPD (chronic obstructive pulmonary disease) Diagnosis: Principal ICD Codes: J44.9 - Chronic obstructive pulmonary disease, unspecified (4) HTN (hypertension) Diagnosis: Secondary ICD Codes: I10 - Essential (primary) hypertension (5) Hyperlipemia Diagnosis: Secondary ICD Codes: E78.5 - Hyperlipidemia, unspecified (6) Delirium tremens Diagnosis: Principal ICD Codes: F10.231 - Alcohol dependence with withdrawal delirium Status: Acute Brief History Mr. Brody is a pleasant 57 y/o WM with COPD, HTN, Hyperlipidemia, tobacco abuse and alcohol abuse. He went to [facility] on a voluntary basis for alcohol detox but was reportedly transferred to the ED on 01/26/18 for depression and suicidal ideation and pt was SOB which is apparently chronic. His alcohol level in the ED was 247. He was seen by Psychiatry in the ED and was recommended ambulatory chemical dependency evaluation and treatment upon discharge. Pt has been drinking 1-2 bottles of wine per day and occasional beer for the last 1-2 weeks. Prior to that he had been sober for 2 months and going to regular AA meetings. He has been drinking 1-2 bottles of wine per day and has been a daily heavy drinker since he was a teenager. He reports that he has gone through alcohol withdrawal previously when he was admitted in October 2017. He denies any hx of withdrawal seizures. In the ED pt continued to have some SOB and tachycardia and was reportedly tremulous. Pt was given Ativan 2 mg IM and Phenergan 25 mg IM and placed on a CIWA protocol. Patient remained slightly tachycardic with a rate in the 110s and required use of supplemental O2 as his oxygen saturation dropped to 91%. A D-dimer was checked in the ED and was elevated at 0.68. CT pulmonary angiogram was ordered which was negative. Metabolic panel showed a sodium level of 124. Patient was initially given a liter of IV fluids, IV fluids were then ordered at a maintenance rate of 100 mL an hour. Patient is being admitted for observation for alcohol withdrawal, hyponatremia, and hypoxia. CBC/BMP: 01/30/18 0726 01/30/18 0726 Significant Findings Laboratory Tests Test 01/27/18 10:43 01/27/18 12:05 01/27/18 15:08 01/28/18 05:50 Calcium Level 7.7 MG/DL (8.5-10.1) 7.5 MG/DL (8.5-10.1) Aspartate Amino Transf (AST/SGOT) 81 U/L (15-37) Sodium Level 124 MEQ/L (136-145) 131 MEQ/L (136-145) Chloride Level 88 MEQ/L (98-107) 95 MEQ/L (98-107) D-Dimer Quantitative (PE/DVT) 0.68 MG/L FEU (0.00-0.50) Monocytes (%) (Auto) 12.7 % (0.0-8.0) Test 01/30/18 07:26 Lymphocytes (%) (Auto) 48.6 % (9.0-44.0) Monocytes (%) (Auto) 8.9 % (0.0-8.0) Eosinophils (%) (Auto) 4.4 % (0.0-4.0) Magnesium Level 1.4 MG/DL (1.5-2.5) Estimat Glomerular Filtration Rate 82 ML/MIN (>89) PE at Discharge General: NAD, AAox3 Chest: CTA Cardiac: Regular Abd: +BS, soft ND/NT Ext: No edema Hospital Course A/P Problem List: (1) Alcohol withdrawal ICD Codes: F10.239 - Alcohol dependence with withdrawal, unspecified Plan: Alcohol withdrawal Hyponatremia Alcohol abuse Tachycardia - Pt is a 57 y/o WM with COPD, HTN, Hyperlipidemia, tobacco abuse and alcohol abuse. He went to [facility] on a voluntary basis for alcohol detox but was reportedly transferred to the ED on 01/26/18 due to his hx of COPD which was reportedly out of their scope of practice and pt was SOB which is apparently chronic. His alcohol level in the ED was 247. He was seen by Psychiatry in the ED and was recommended ambulatory chemical dependency evaluation and treatment upon discharge. Pt has been drinking 1-2 bottles of wine per day and occasional beer for the last 1-2 weeks. Prior to that he had been sober for 2 months and going to regular AA meetings. He has been drinking 1-2 bottles of wine per day and has been a daily heavy drinker since he was a teenager. He reports that he has gone through alcohol withdrawal previously when he was admitted in October 2017. He denies any hx of withdrawal seizures. In the ED pt continued to have some SOB and tachycardia and was reportedly tremulous. - Pt was given Ativan 2 mg IM and Phenergan 25 mg IM in the ED and placed on a CIWA protocol. - Pt was started on Librium 20mg QID at admission. - Ativan PRN per CIWA protocol Pt feels much better today. Eating and drinking well. ambulating. His electrolytes have normalizied will continue librium wean to off He will be discharged today and will f/u with [facility] for etoh and depression issues. COPD Hypoxia - A D-dimer was checked in the ED and was elevated at 0.68. - CT pulmonary angiogram was ordered which was negative. - Duonebs Q6H WA and Q2H PRN Albuterol nebs - Cont. home Spiriva - Pt able to be weaned off supplemental O2 His respiratory status is stable. currently not in a copd flare HTN - Home home dose of Lisinopril Hyperlipidemia - Home home Crestor GERD - PPI - DVT prophylaxis with SCDs (2) Hyponatremia ICD Codes: E87.1 - Hypo-osmolality and hyponatremia (3) COPD (chronic obstructive pulmonary disease) ICD Codes: J44.9 - Chronic obstructive pulmonary disease, unspecified (4) HTN (hypertension) ICD Codes: I10 - Essential (primary) hypertension (5) Hyperlipemia ICD Codes: E78.5 - Hyperlipidemia, unspecified (6) Delirium tremens Pt Condition on Discharge: Stable Discharge Instructions DIET: Follow Instructions for: As Tolerated, No Restrictions Activities you can perform: Regular-No Restrictions Follow up Referrals: Drug/Alcohol Rehab - Today with [facility] Follow-up - 1 Week New Medications: Chlordiazepoxide HCl (Chlordiazepoxide HCl) 25 Mg Capsule 25 MG PO DIRECTED for Alcohol Detox, #10 CAP 25mg po bid x 3 days, 25mg po daily x 4 days Continued Medications: Albuterol 18 GM Inh (Ventolin Hfa 18 GM Inh) 90 Mcg/Act Aer 2 PUFF INH Q4H PRN for SHORTNESS OF BREATH, #1 INHALER [address] (Aspirin EC) 81 Mg Tabdr 81 MG PO DAILY for Prevent Blood Clot, #30 TAB 0 Refills Lisinopril (Lisinopril) 10 Mg Tab 10 MG PO DAILY, #30 TAB 0 Refills Loratadine (Claritin) 10 Mg Cap 10 MG PO DAILY for Allergy Management, CAP 0 Refills Pantoprazole (Protonix) 40 Mg Tab 40 MG PO DAILY for Reflux, #30 TAB 0 Refills Potassium Phosphate Monobasic (K-Phos) 500 Mg Tab 1000 MG PO Q12HR for Electrolyte Replacement, #3 TAB Rosuvastatin (Crestor) 20 Mg Tab 20 MG PO DAILY for Cholesterol Management, #30 TAB 0 Refills Tiotropium Inh (Spiriva Handihaler) 18 Mcg Cap 18 MCG INH DAILY for COPD, #30 CAP 0 Refills 1 capsule = 18 mcg [Magnesium ] () 400 MG PO DIRECTED Phoenix Montaño MD Jan 30, 2018 10:37
[2018-01-30] MEDS ORDERED: CHLO25CA9 PO (10:40)
--- NOTE | 2018-01-30 10:40 | HHI.DCPOC ---
Discharge Care Plan Diagnosis: (1) Alcohol withdrawal (2) Delirium tremens Goals to Promote Your Health * To prevent worsening of your condition and complications * To maintain your health at the optimal level Directions to Meet Your Goals Take your medications as prescribed Follow your dietary instruction Follow activity as directed Keep your appointments as scheduled Take your immunizations and boosters as scheduled If your symptoms worsen call your PCP, if no PCP go to Urgent Care Center or Emergency Room Smoking is Dangerous to Your Health. Avoid second hand smoke Call the 24-hour hour crisis hotline for domestic abuse at Phoenix Montaño MD Jan 30, 2018 10:40
== END 2018-01-30 12:38 | disposition home or self-care (01) | DRG 897 ==
LOC: NEPD 19:58 → NEDA 01-27 15:10 → NEPGCP 01-27 16:22 → OBSVTOIN 01-28 14:41 → N05A 01-29 16:43
PROVIDERS: ADMIT Hospitalist; ATTEND Hospitalist
DX: F10.231 Alcohol dependence with withdrawal delirium (principal); I10 Essential (primary) hypertension; E87.1 Hypo-osmolality and hyponatremia; Y90.8 Blood alcohol level of 240 mg/100 ml or more; J44.9 Chronic obstructive pulmonary disease, unspecified; E78.5 Hyperlipidemia, unspecified; K21.9 Gastro-esophageal reflux disease without esophagitis; Z87.891 Personal history of nicotine dependence
CPT/HCPCS: 71275; 80048; 80053; 80307; 82948; 83735; 84443; 85025; 85379; 94640; 94664; J0131; J2060; J2550; J7030; J7613; Q9967